=== PATIENT | male | born 1960 | race Caucasian/White ===

== ENCOUNTER → 2016-12-18 | Outpatient (CLI) | payer OTHER ==
[~2016-12-18] MED LIST: OXYC1TAB3 PO
[2016-12-18 14:04] LABS: BASO % 0.4 %; BASO ABS # 0.03 K/uL (0-0.2); COMPLETE YES; EOS % 0.9 %; HEMATOCRIT 46.9 % (42-52); IG% 0.1 %; LYMPH % 25.7 %; LYMPH ABS # 1.98 K/uL (1.2-3.4); MEAN CELL VOLUME 91.8 fL (80-100); MEAN CORPUSCULAR HEMOGLOBIN 30.3 pg (25-34); MEAN PLATELET VOLUME 12.4 fL (7.4-10.4); MONO % 6.4 %; NEUT % 66.5 %; PLATELET COUNT 213 K/uL (130-400); RED BLOOD COUNT 5.11 M/uL (4.7-6.1); WHITE BLOOD COUNT 7.69 K/uL (4.8-10.8)
[2016-12-18 14:29] LABS: ALT/SGPT 38 U/L (12-78); AST/SGOT 26 U/L (15-37); BLOOD UREA NITROGEN 17 mg/dl (7-18); BUN/CREATININE RATIO 16.9 (10-20); CALCIUM 8.8 mg/dl (8.5-10.1); CARBON DIOXIDE 29 mmol/L (21-32); CHLORIDE 106 mmol/L (98-107); CHOLESTEROL 179 mg/dl (0-200); GLUCOSE 104 mg/dl (70-99); POTASSIUM 3.8 mmol/L (3.5-5.1); SODIUM 139 mmol/L (136-145); TRIGLYCERIDES 206 mg/dl (0-150); VERY LOW DENSITY LIPOPROT CALC 41 mg/dl
[2016-12-18 14:31] LABS: ALB/GLOB RATIO 1.3 (0.9-2); ALKALINE PHOSPHATASE 106 U/L (45-117); HDL CHOLESTEROL 36 mg/dl; LDL CHOLESTEROL CALCULATED 102 mg/dl
== END | disposition home or self-care (01) ==
LOC: C.LABPVFM 09:25
PROVIDERS: ATTEND Neuromusculoskeletal Medicine & OMM
DX: Z00.00 Encounter for general adult medical examination without abnormal findings (principal); R03.0 Elevated blood-pressure reading, without diagnosis of hypertension

== ENCOUNTER 2024-08-04 10:35 | Observation (INO) ==
--- NOTE | 2024-08-04 10:50 | Emergency Department Note ---
Impression & Plan Acute CVA (cerebrovascular accident), Hypertension, Hypokalemia ED Provider Note NAME: MIKE RIOJAS AGE: 63 SEX: M : 1960 ARRIVES VIA: Walk-In INFORMANT: Patient ED PROVIDER(S): Lionel Salvador DO CHIEF COMPLAINT: Right arm weakness, blurry vision HPI: Patient is a 63-year-old male who presents to the ER with a past medical history of anxiety and hypertension for right arm weakness. He notes symptoms started initially about 3 days ago. He has been little bit more forgetful. He does feel foggy and does have some blurry vision. He notes he can no longer write his name is the fine motor is difficult with the right hand and arm. He also notices issue with overall gross weakness in the right arm. Denies any chest pain or shortness of breath. No belly pain. No nausea vomiting or diarrhea. No dysuria, urgency, or frequency. No other exacerbating or remitting factors. ADDITIONAL HISTORY OBTAINED: Per HPI Chronic Medical/Social Conditions Affecting Care: Per HPI PAST MEDICAL HISTORY:See Below PAST SURGICAL HISTORY:See Below FAMILY HISTORY:See Below SOCIAL HISTORY:See Below HOME MEDICATIONS:See Below ALLERGIES:See Below VITALS:See Below PHYSICAL EXAMINATION: GENERAL: Sitting up in bed, alert, well appearing, well nourished, no distress, non-toxic EYE EXAM: normal conjunctiva. PERRL and EOM's grossly intact. OROPHARYNX: no exudate, no erythema, lips, buccal mucosa, and tongue normal and mucous membranes are moist NECK: supple, no nuchal rigidity, no adenopathy, non-tender LUNGS: Clear to auscultation. Normal chest wall mechanics HEART: no murmurs, S1 normal and S2 normal ABDOMEN: abdomen soft, non-tender, normo-active bowel sounds, no masses, no rebound or guarding. BACK: Back is symmetrical on inspection and there is no deformity, no midline tenderness, no CVA tenderness. SKIN: no rashes and no bruising UPPER EXTREMITIES: upper extremities are grossly normal. LOWER EXTREMITIES: No pitting edema. NEURO EXAM: Normal sensorium, cranial nerves II-XII intact, normal speech, right upper extremity is 4 out of 5 with grasp as well as flexion extension in comparison to the left which is a 5 out of 5, no weakness of legs. No drift. Finger to nose intact. Gross sensation intact. MEDICAL DECISION MAKING: Patient is a 63-year-old male who presents ER with a past medical history of hypertension and anxiety who presents to the ER for right upper extremity weakness and blurry vision which has been present for the past 3 days. He notes he can no longer write his name he is having trouble with fine movement of his right hand. IVs were established and blood work was obtained. Labs showed no significant leukocytosis or anemia. INR was unremarkable. BMP with mild hypokalemia 3.4. LFTs bilirubin and troponin was negative. Upon arrival stroke alert was not called as patient is not a candidate for intervention or TNK as this is about [address] of the head is consistent with a stroke per my pulmonary interpretation. I did consult the hospitalist for admission evaluation. I received a phone call just following the page to the hospitalist which showed a 9 mm dissection of the carotid on the right. Did notify Dr. Cannon in regards to this and he requested that we speak with [facility] stroke team. There is no thrombus and both lumens are patent. I did discuss the case with Dr. Streeter from [facility] neuro teleradiology. He notes that this does not need to be transferred as there is no acute intervention that will be performed. He can stay here. He will place a note. I updated Dr. Cannon in regards to this. Please see their note for further disposition and details. Consults/Care Managements Discussions: Per [facility] Triage Nursing notes reviewed. Limited review of prior medical records performed Vital Signs: reviewed and remarkable for no significant abnormalities Differential diagnosis: Differential Diagnosis includes but is not limited to ischemic Stroke, hemorrhagic stroke, bells palsy, mass, neoplasm, migraine headache, seizure, subarachnoid hemorrhage, TIA, and transient global amnesia. ER treatment provided: See below Diagnostics interpreted by me include EKG and cardiac monitoring as listed below: -Cardiac Monitoring: An order was placed for continuous cardiac monitoring. The monitor shows a rate of 70 with sinus rhythm. -ECG: none -Laboratory studies:Interpreted by me as stated above in [facility] and shown below. Imaging studies: Xrays: As interpreted by me:none CTs show: CT of the head per my preliminary interpretation showed a infarct CT of the head as well as angios of the head and neck as described above in [facility] Procedures:none Critical Care: None Past Med/Surg History Problem List (Updated 08/04/24 @ 13:41 by Lionel Salvador DO) Hypokalemia (Acute) Hypertension (Acute) Acute CVA (cerebrovascular accident) (Acute) Colon cancer screening Encounter for pre-operative examination Vitamin D deficiency Anxiety Leukocytosis Impaired fasting glucose HTN (hypertension) Gastroesophageal reflux disease Medical History Gastroesophageal reflux disease HTN (hypertension) Surgical History History of knee surgery [place] removed from rt knee History of shoulder surgery Lt shoulder S/P hernia repair at the age of 5 S/P wisdom tooth extraction Family History Mother COPD (chronic obstructive pulmonary disease) Hypertension Brother Hypertension Uncle Myocardial infarction Other No family history of adverse response to anesthesia Denies family history of Ovarian cancer Prostate cancer Breast cancer Colorectal cancer Social History (Updated 11/27/21 @ 14:02 by MARIO Guadalupe) Smoking Status: Current every day smoker Second Hand Exposure: No; Do You Dip or Chew Tobacco: No; Hx Alcohol Use: No Hx Substance Use: No Preferred Language: Maldivian Communication Ability: Effective Visual Impairment: No Limitations Hearing Ability: Normal 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 Beliefs That Will Affect Care: None marital status: Current Living Situation: Spouse current occupational status: employed Feels Safe at Home: Yes Childhood Exposure to Second-Hand Smoke: No Diet: regular Diet Comment: regular caffeine: Yes (Soda ) Dental Care, Regularly: No Physical Activity Frequency: Daily Seatbelt Use: always Sunscreen Use: Yes Assistive Devices: None Allergies Allergies Allergy/AdvReac Type Severity Reaction Status Date / Time No Known Allergies Allergy Verified 12/31/21 09:08 Home Meds Home Medications Medication Instructions Recorded Confirmed No Known Home Medications 08/04/24 08/04/24 Results & Data (ED) Vital Signs Vital Signs - 24 hr 08/04/24 10:36 08/04/24 10:36 08/04/24 11:07 Temperature 36.6 C Temperature Source Temporal Artery Scan Pulse Rate 71 Pulse Rate [Apical] 76 Pulse Rate from SpO2 Sensor Respiratory Rate 18 18 Respiratory Effort / Characteristics Respiratory Depth Blood Pressure 199/111 H Blood Pressure [Left Arm] 199/111 H Blood Pressure Mean 122 Blood Pressure Mean [Left Arm] 140 Pulse Oximetry 94 95 Oxygen Delivery Method Room Air Sepsis Recent Fever Within 48 Hours No Sepsis New/Unexplained Change in Mental Status N/A Sepsis Action Taken by Nursing No Action Required 08/04/24 11:07 08/04/24 11:07 08/04/24 11:09 Temperature Temperature Source Pulse Rate 72 Pulse Rate [Apical] Pulse Rate from SpO2 Sensor 72 Respiratory Rate 17 Respiratory Effort / Characteristics Respiratory Depth Blood Pressure 199/111 H 199/111 H Blood Pressure [Left Arm] Blood Pressure Mean 122 122 Blood Pressure Mean [Left Arm] Pulse Oximetry 96 Oxygen Delivery Method Sepsis Recent Fever Within 48 Hours Sepsis New/Unexplained Change in Mental Status Sepsis Action Taken by Nursing 08/04/24 11:15 08/04/24 11:25 08/04/24 11:26 Temperature Temperature Source Pulse Rate 77 Pulse Rate [Apical] 76 Pulse Rate from SpO2 Sensor 76 Respiratory Rate 18 18 Respiratory Effort / Characteristics Non-Labored Spontaneous Respiratory Depth Normal Blood Pressure 151/95 H Blood Pressure [Left Arm] 151/95 H Blood Pressure Mean 135 Blood Pressure Mean [Left Arm] 113 Pulse Oximetry 95 95 Oxygen Delivery Method Room Air Sepsis Recent Fever Within 48 Hours Sepsis New/Unexplained Change in Mental Status Sepsis Action Taken by Nursing 08/04/24 11:26 08/04/24 11:26 08/04/24 11:30 Temperature Temperature Source Pulse Rate 72 Pulse Rate [Apical] Pulse Rate from SpO2 Sensor 72 Respiratory Rate 24 Respiratory Effort / Characteristics Respiratory Depth Blood Pressure 151/95 H 151/95 H Blood Pressure [Left Arm] Blood Pressure Mean 135 135 Blood Pressure Mean [Left Arm] Pulse Oximetry 95 Oxygen Delivery Method Sepsis Recent Fever Within 48 Hours Sepsis New/Unexplained Change in Mental Status Sepsis Action Taken by Nursing 08/04/24 11:42 Temperature Temperature Source Pulse Rate 74 Pulse Rate [Apical] Pulse Rate from SpO2 Sensor 72 Respiratory Rate 17 Respiratory Effort / Characteristics Respiratory Depth Blood Pressure Blood Pressure [Left Arm] Blood Pressure Mean Blood Pressure Mean [Left Arm] Pulse Oximetry 96 Oxygen Delivery Method Sepsis Recent Fever Within 48 Hours Sepsis New/Unexplained Change in Mental Status Sepsis Action Taken by Nursing Laboratory Data 08/04/24 10:25 08/04/24 10:25 Lab Results 08/04/24 Range/Units 10:25 WBC 9.69 (4.8-10.8) K/ul RBC 5.30 (4.70-6.10) M/uL Hgb 16.2 (14.0-18.0) g/dl Hct 46.5 (42.0-52.0) % MCV 87.7 (80.0-100.0) fL MCH 30.6 (25.0-34.0) pg MCHC 34.8 (32.0-36.0) g/dL RDW Std Deviation 38.8 (36.4-46.3) fL RDW Coeff of Janet 12.2 (11.5-14.5) % Plt Count 223 (130-400) K/uL MPV 12.1 (9.4-12.4) fL Immature Gran % (Auto) 0.4 % Neut % (Auto) 71.9 % Lymph % (Auto) 18.6 % Coffey % (Auto) 7.9 % Eos % (Auto) 0.7 % Baso % (Auto) 0.5 % Neut # (Auto) 6.96 H (1.40-6.50) K/uL Lymph # (Auto) 1.80 (1.20-3.40) K/uL Coffey # (Auto) 0.77 H (0.11-0.59) K/uL Eos # (Auto) 0.07 (0.00-0.50) K/uL Baso # (Auto) 0.05 (0.00-0.20) K/uL Immature Gran # (Auto) 0.04 (0.01-0.20) K/uL ESR 6 (0-20) mm/hr PT 10.9 (9.0-12.0) Seconds INR 1.0 (0.9-1.1) APTT 25 (21-31) Seconds PTT Ratio 0.9 Sodium 141 (136-145) mmol/L Potassium 3.4 L (3.5-5.1) mmol/L Chloride 102 (98-107) mmol/L Carbon Dioxide 33 H (21-32) mmol/L Anion Gap 6 (3-11) BUN 16 (6-23) mg/dl Creatinine 1.19 (0.6-1.4) mg/dl Est Cr Clr Drug Dosing 71.5 ml/min eGFR 69.50 BUN/Creatinine Ratio 13.4 (10-20) Glucose 74 (70-99(Fasting)) mg/dl Calcium 9.2 (8.6-10.3) mg/dl Magnesium 2.2 (1.7-2.4) mg/dl Total Bilirubin 0.7 (0.2-1.0) mg/dl AST 21 (13-39) U/L ALT 26 (7-52) U/L Alkaline Phosphatase 76 (34-104) U/L Troponin I High Sens 8.9 (0-20) pg/ml C-Reactive Protein < 0.50 (0-0.5) mg/dl Total Protein 7.3 (6.0-8.3) gm/dl Albumin 4.6 (3.4-5.0) gm/dl Globulin 2.7 (2.5-4.0) gm/dl Albumin/Globulin Ratio 1.7 (0.9-2) Administered Medications Discontinued Medications Aspirin (Aspirin Chew 324 Mg) 324 mg PO NOW STA Stop: 08/04/24 12:02 Last Admin: 08/04/24 12:12 Dose: 324 mg Documented By: RYLEY Clopidogrel Bisulfate (Clopidogrel Bisulfate 300 Mg Tab) 300 mg PO NOW STA Stop: 08/04/24 12:09 Last Admin: 08/04/24 12:12 Dose: 300 mg Documented By: RYLEY Ioversol (Optiray 320 125ml) 117 ml IV ONCE ONE Stop: 08/04/24 11:03 Last Admin: 08/04/24 11:03 Dose: 117 ml Documented By: GERA Imaging Data Radiologist's Impression: Head CT 08/04/24 10:39 Clinical History: Possible stroke 2 days ago Technique: Axial computed tomography images were obtained of the brain from the vertex to the skull base without intravenous contrast. Findings: There is no sign of intracranial hemorrhage. There is a 1.6 cm low-attenuation area in the left blancas radiata that may represent a subacute infarct. No midline shift or other form of herniation is identified. There is no hydrocephalus. No obvious mass lesion is seen on this noncontrast examination. The visualized portions of the orbits and paranasal sinuses appear unremarkable. The mastoid air cells appear clear Impression: Apparent subacute infarct of the left blancas radiata These findings were discussed with Dr. Salvador at 11:25 AM on 08/04/2024 ACT 112: Positive. There are findings on this exam that require communication between the performing entity and the patient following Patient Test Result Information Act ([place] ACT 112) guidelines. Electronically signed by Bill Gillespie 08-04-2024 11:26 AM Head CTA 08/04/24 10:39 Clinical History: Possible stroke 2 days ago Technique: Axial computed tomography images were obtained of the brain after the administration of intravenous contrast according to the CT angiogram protocol Findings: No definite stenosis or aneurysm is seen of the anterior, middle, or posterior cerebral artery circulations. The visualized vertebral arteries and the basilar artery appear unremarkable Impression: Unremarkable CTA of the brain These findings were discussed with Dr. Salvador at 11:25 AM on 08/04/2024 Electronically signed by Bill Gillespie 08-04-2024 11:26 AM Neck CTA 08/04/24 10:39 Clinical History: Possible stroke 2 days ago Technique: Axial computed tomography images were obtained of the neck after the administration of intravenous contrast according to the CT angiogram protocol Findings: No stenosis is seen in the common carotid arteries bilaterally. There is plaque within the carotid bulbs bilaterally, without significant stenosis. There is an apparent focal dissection within the right carotid bulb extending less than 1 cm in length. Flow is seen within both lumens. The remainder of the internal carotid arteries appear patent bilaterally. There is mild plaque at the origin of the right external carotid artery, without stenosis The vertebral arteries are patent bilaterally with no significant stenosis seen. The visualized thoracic aorta appears unremarkable There is multilevel degenerative disc disease and osteoarthritis of the cervical spine. Impression: 1. Focal dissection in the right carotid bulb 2. Mild plaque in the carotid bulbs bilaterally, without stenosis These findings were discussed with Dr. Salvador at 11:32 AM on 08/04/2024 ACT 112: Positive. There are findings on this exam that require communication between the performing entity and the patient following Patient Test Result Information Act ([place] ACT 112) guidelines. Electronically signed by Bill Gillespie 08-04-2024 11:32 AM Discharge Plan Visit Data Chief Complaint: TIA Symptoms Stated Complaint: FOGGY, CONFUSION, BLURRY VIS, RT ARM TINGLING ED Provider: Lionel Salvador Discharge Problem: Acute CVA (cerebrovascular accident), Hypertension, Hypokalemia Patient Disposition: Admitted As Inpatient Discharge Instructions Interventions: ED Discharge Assessment Last Done: 08/04/24 12:42 Discharge Problem: Hypertension Qualifiers: Hypertension type: unspecified Qualified Code(s): I10 - Essential (primary) hypertension
[2024-08-04] MEDS: OPTIRAY 320 125ml IV ONE (11:03)
[2024-08-04 11:14] LABS: Basophils # (auto) 0.05 K/uL (0.00-0.20); Basophils % (auto) 0.5 %; Eosinophils # (auto) 0.07 K/uL (0.00-0.50); Eosinophils % (auto) 0.7 %; Hematocrit (blood only) 46.5 % (42.0-52.0); Hemoglobin 16.2 g/dl (14.0-18.0); Immature Granulocytes # (auto) 0.04 K/uL (0.01-0.20); Immature Granulocytes % (auto) 0.4 %; Lymphocytes % (auto) 18.6 %; Mean Corpuscular Hemoglobin 30.6 pg (25.0-34.0); Mean Corpuscular Hgb Conc 34.8 g/dL (32.0-36.0); Mean Corpuscular Volume 87.7 fL (80.0-100.0); Mean Platelet Volume 12.1 fL (9.4-12.4); Monocytes # (auto) 0.77 K/uL (0.11-0.59); Monocytes % (auto) 7.9 %; Neutrophils # (auto) 6.96 K/uL (1.40-6.50); Neutrophils % (auto) 71.9 %; Platelet Count 223 K/uL (130-400); RDW Coefficient of Variation 12.2 % (11.5-14.5); RDW Standard Deviation 38.8 fL (36.4-46.3); White Blood Count 9.69 K/ul (4.8-10.8)
--- NOTE | 2024-08-04 11:26 | CT Scan Report ---
Clinical History: Possible stroke 2 days ago Technique: Axial computed tomography images were obtained of the brain from the vertex to the skull base without intravenous contrast. Findings: There is no sign of intracranial hemorrhage. There is a 1.6 cm low-attenuation area in the left blancas radiata that may represent a subacute infarct. No midline shift or other form of herniation is identified. There is no hydrocephalus. No obvious mass lesion is seen on this noncontrast examination. The visualized portions of the orbits and paranasal sinuses appear unremarkable. The mastoid air cells appear clear Impression: Apparent subacute infarct of the left blancas radiata These findings were discussed with Dr. Salvador at 11:25 AM on 08/04/2024 ACT 112: Positive. There are findings on this exam that require communication between the performing entity and the patient following Patient Test Result Information Act ([place] ACT 112) guidelines. Electronically signed by Bill Gillespie 08-04-2024 11:26 AM
--- NOTE | 2024-08-04 11:27 | CT Scan Report ---
Clinical History: Possible stroke 2 days ago Technique: Axial computed tomography images were obtained of the brain after the administration of intravenous contrast according to the CT angiogram protocol Findings: No definite stenosis or aneurysm is seen of the anterior, middle, or posterior cerebral artery circulations. The visualized vertebral arteries and the basilar artery appear unremarkable Impression: Unremarkable CTA of the brain These findings were discussed with Dr. Salvador at 11:25 AM on 08/04/2024 Electronically signed by Bill Gillespie 08-04-2024 11:26 AM
[2024-08-04 11:31] LABS: Alanine Aminotransferase 26 U/L (7-52); Albumin Globulin Ratio 1.7 (0.9-2); Albumin Level 4.6 gm/dl (3.4-5.0); Alkaline Phosphatase 76 U/L (34-104); Anion Gap 6 (3-11); Aspartate Aminotransferase 21 U/L (13-39); BUN Creatinine Ratio 13.4 (10-20); Bilirubin,Total 0.7 mg/dl (0.2-1.0); Blood Urea Nitrogen 16 mg/dl (6-23); Calcium 9.2 mg/dl (8.6-10.3); Carbon Dioxide 33 mmol/L (21-32); Chloride 102 mmol/L (98-107); Creatinine Clr Calc Pharmacy 71.5 ml/min; Globulin 2.7 gm/dl (2.5-4.0); Glucose 74 mg/dl (70-99(Fasting)); Magnesium 2.2 mg/dl (1.7-2.4); Potassium 3.4 mmol/L (3.5-5.1); Sodium 141 mmol/L (136-145); Total Protein 7.3 gm/dl (6.0-8.3)
--- NOTE | 2024-08-04 11:32 | CT Scan Report ---
Clinical History: Possible stroke 2 days ago Technique: Axial computed tomography images were obtained of the neck after the administration of intravenous contrast according to the CT angiogram protocol Findings: No stenosis is seen in the common carotid arteries bilaterally. There is plaque within the carotid bulbs bilaterally, without significant stenosis. There is an apparent focal dissection within the right carotid bulb extending less than 1 cm in length. Flow is seen within both lumens. The remainder of the internal carotid arteries appear patent bilaterally. There is mild plaque at the origin of the right external carotid artery, without stenosis The vertebral arteries are patent bilaterally with no significant stenosis seen. The visualized thoracic aorta appears unremarkable There is multilevel degenerative disc disease and osteoarthritis of the cervical spine. Impression: 1. Focal dissection in the right carotid bulb 2. Mild plaque in the carotid bulbs bilaterally, without stenosis These findings were discussed with Dr. Salvador at 11:32 AM on 08/04/2024 ACT 112: Positive. There are findings on this exam that require communication between the performing entity and the patient following Patient Test Result Information Act ([place] ACT 112) guidelines. Electronically signed by Bill Gillespie 08-04-2024 11:32 AM
[2024-08-04 11:37] LABS: Troponin I High Sensitivity 8.9 pg/ml (0-20)
[2024-08-04 11:41] LABS: Partial Thromboplastin Ratio 0.9; Partial Thromboplastin Time 25 Seconds (21-31); Prothrombin Time 10.9 Seconds (9.0-12.0)
[2024-08-04] MEDS ORDERED: ALUMINUM/MAGNESIUM SUSP 30 ML UDC PO PRN (11:53)
[2024-08-04] MEDS ORDERED: MAGNESIUM HYDROXIDE SUSP 30 ML UDC PO PRN (11:53)
[2024-08-04] MEDS ORDERED: ACETAMINOPHEN 325 MG TAB PO PRN (11:53)
[2024-08-04] MEDS ORDERED: ONDANSETRON INJ 2 MG/ML 2 ML VIAL IV PRN (11:53)
[2024-08-04] MEDS ORDERED: POLYETHYLENE (MIRALAX) 17 GM PACK PO PRN (11:53)
[2024-08-04] MEDS ORDERED: MELATONIN 3 MG TAB PO PRN (11:59)
[2024-08-04] MEDS ORDERED: PHARMACIST DISCHARGE MED REC CONSULT PRN ×2 (12:09→12:23)
[2024-08-04] MEDS: ASPIRIN CHEW 324 MG PO STA (12:12)
[2024-08-04] MEDS: CLOPIDOGREL BISULFATE 300 MG TAB PO STA (12:12)
--- NOTE | 2024-08-04 12:18 | History & Physical Report ---
Date of Service August 04, 2024 Assessment & Plan (1) Acute CVA (cerebrovascular accident): Plan: Assessment: 1. Acute CVA left blancas radiata. Signs and symptoms ongoing for 3 days. Stat dual antiplatelet therapy. 324 of aspirin. 300 of Plavix. Starting tomorrow 81 of aspirin. 75 of Plavix. High-dose statin therapy has been implemented statin 80 mg of Lipitor. Neurology consulted. MRI of the brain's been ordered. Echocardiograms been ordered. Stroke order set has been implemented. 2. History of hypertension. At this point we will allow for permissive hypertension given the acute to subacute CVA. 3. Unknown lipid status. Lipid panel in the a.m. 4. Obesity. 5. Mild hypokalemia. Replace orally and recheck in the a.m. will do potassium chloride 40 mill equivalents x 1 Plan: As discussed above. Please refer to orders for further planning. History of Present Illness Chief Complaint: Right arm discoordination, unable to write with his dominant right hand and slight confusion Primary Care Provider: Harry Miller, This is a pleasant 63-year-old male who 72 hours ago developed discoordination of his right hand which is his dominant hand is unable to write. He has had some right arm weakness and some discoordination as well as confusion. Today he presented to the ER for further evaluation and treatment. The patient was stroke alerted. He had a CT of the brain which is positive for a subacute left blancas radiata infarct. In addition CTA of the head and neck were positive for a small right carotid bulb artery dissection. Telestroke was contacted by the ER provider per the ER provider no surgical recommendation was recommended. We made contact with local neurology on-call we are starting stat dual antiplatelet therapy and high-dose statin therapy will do an MRI of the brain admit the patient under the stroke protocol. Echocardiogram. The patient's laboratory studies were otherwise unremarkable. Allergies Allergy/AdvReac Type Severity Reaction Status Date / Time No Known Allergies Allergy Verified 12/31/21 09:08 Home Medications Medication Instructions Recorded Confirmed Type No Known Home Medications 08/04/24 08/04/24 History Past Med/Surg History Problem List (Updated 08/04/24 @ 12:16 by Joe aCnnon, PhD, DO) Acute CVA (cerebrovascular accident) Colon cancer screening Encounter for pre-operative examination Vitamin D deficiency Anxiety Leukocytosis Impaired fasting glucose HTN (hypertension) Gastroesophageal reflux disease Medical History Gastroesophageal reflux disease HTN (hypertension) Surgical History History of knee surgery Cartlidge removed from rt knee History of shoulder surgery Lt shoulder S/P hernia repair at the age of 5 S/P wisdom tooth extraction Family History Mother COPD (chronic obstructive pulmonary disease) Hypertension Brother Hypertension Uncle Myocardial infarction Other No family history of adverse response to anesthesia Denies family history of Ovarian cancer Prostate cancer Breast cancer Colorectal cancer Social History (Updated 11/27/21 @ 14:02 by MARIO Guadalupe) Smoking Status: Current every day smoker Second Hand Exposure: No; Do You Dip or Chew Tobacco: No; Hx Alcohol Use: No Hx Substance Use: No Preferred Language: Turkmen Communication Ability: Effective Visual Impairment: No Limitations Hearing Ability: Normal Librarian Head Required: No Beliefs That Will Affect Care: None marital status: Current Living Situation: Spouse current occupational status: employed Feels Safe at Home: Yes Childhood Exposure to Second-Hand Smoke: No Diet: regular Diet Comment: regular caffeine: Yes (Soda ) Dental Care, Regularly: No Physical Activity Frequency: Daily Seatbelt Use: always Sunscreen Use: Yes Assistive Devices: None Review of Systems Review of Systems: A 10 point review of system was obtained and unless otherwise stated here or in history of present illness are negative and noncontributory to chief complaint. Physical Exam Physical Exam: In General: In general very pleasant 63-year-old male he is alert and oriented x 3. He denies any pain. His only symptomatology is a discoordination of his right hand and difficulty focusing for an extended period of time. 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 HEENT: Normocephalic atraumatic pupils are equal round and reactive to light bilaterally. No scleral icterus no conjunctival injection external auditory canals are patent septum is in the midline nose is without discharge oral mucosa is pink and moist without lesion. NECK: Supple no rigidity no lymphadenopathy no thyromegaly no carotid bruits no JVD no masses. HEART: Regular rate and rhythm I do not appreciate any ectopy or rub. No murmur. LUNGS: Clear to auscultation bilaterally and anteriorly with no evidence of a dventitious sounds/wheezes rales or rhonchi. ABDOMEN: Soft nontender, no rebound, no peritoneal signs, positive bowel sounds, no appreciable organomegaly. EXTREMITIES: Intact, no peripheral cyanosis, clubbing or edema. Strength is 5 out of 5 in his extremities x 3. The exception is his right upper extremity. He has 4+ out of 5 strength. It is minimally decreased to the contralateral upper extremity and his right upper extremity is his dominant hand so therefore he does have decreased strength. no pathological reflexes. No pronator drift. The patient does have discoordination of his right upper extremity with fine movements compared to his left. NEUROLOGICAL: Other than described above, cranial nerves II through XII are grossly intact with no focal deficit elicited upon examination. No tremor. Results & Data Results & Data Vital Signs (Past 12 Hours) Vital Signs Temp Pulse Pulse Resp BP Pulse Ox O2 Del Method 08/04/24 11:25 76 18 151/95 H 95 Room Air 08/04/24 10:36 76 18 199/111 H 95 Room Air 08/04/24 10:36 36.6 C 71 18 94 Code Status & VTE Plan Code Status Full code. I personally discussed with patient the bedside. In addition if the patient is unable to make medical decisions for himself he asked us to consult with his daughter Ramses REDDY Care Time/CCT Total # of Minutes Spent Total Time Spent with Patient: Total time spent is greater than 50% in coordination of care (as documented) at patient's floor/unit and/or counseling patient: Coding Level of Care Code 67749 INT INP/OBS CARE 375MIN Diagnoses Acute CVA (cerebrovascular accident) I63.9
[2024-08-04 12:20] LABS: C Reactive Protein < 0.50 mg/dl (0-0.5)
--- NOTE | 2024-08-04 13:27 | Magnetic Resonance Report ---
Technique: Multiple T1 and T2-weighted magnetic resonance images were obtained of the brain without gadolinium contrast Comparison is made to the head CT obtained earlier today Findings: There is a 1.8 x 1.6 x 1.2 cm area of restricted diffusion and increased T2 signal intensity in the left blancas radiata, corresponding to the low attenuation area seen on CT. This is consistent with a subacute infarct. No other area of infarction is seen. No definite mass lesion is seen on this noncontrast study. There is no intracranial hemorrhage or other fluid collection. No midline shift or other form of herniation is seen. There is no hydrocephalus. Normal flow-voids are seen within the arteries of the [id number]. The orbits and paranasal sinuses appear normal. The mastoid air cells appear clear. Impression: Unchanged subacute infarct of the left blancas radiata ACT 112: Positive. There are findings on this exam that require communication between the performing entity and the patient following Patient Test Result Information Act ([place] ACT 112) guidelines. Electronically signed by Bill Gillespie 08-04-2024 13:25 PM
[2024-08-04] MEDS: ATORVASTATIN 40 MG TAB PO SCH (14:27)
[2024-08-04] MEDS: POTASSIUM CHLORIDE CRTAB 20 MEQ TABCR PO STA (14:42)
[2024-08-05 06:50] LABS: Basophils # (auto) 0.05 K/uL (0.00-0.20); Basophils % (auto) 0.6 %; Eosinophils # (auto) 0.13 K/uL (0.00-0.50); Eosinophils % (auto) 1.6 %; Hematocrit (blood only) 44.4 % (42.0-52.0); Hemoglobin 15.4 g/dl (14.0-18.0); Immature Granulocytes # (auto) 0.03 K/uL (0.01-0.20); Immature Granulocytes % (auto) 0.4 %; Lymphocytes # (auto) 2.19 K/uL (1.20-3.40); Lymphocytes % (auto) 26.7 %; Mean Corpuscular Hemoglobin 30.4 pg (25.0-34.0); Mean Corpuscular Hgb Conc 34.7 g/dL (32.0-36.0); Mean Corpuscular Volume 87.7 fL (80.0-100.0); Mean Platelet Volume 11.8 fL (9.4-12.4); Monocytes % (auto) 7.3 %; Neutrophils # (auto) 5.21 K/uL (1.40-6.50); Neutrophils % (auto) 63.4 %; Platelet Count 214 K/uL (130-400); RDW Coefficient of Variation 12.1 % (11.5-14.5); RDW Standard Deviation 38.5 fL (36.4-46.3); Red Blood Count 5.06 M/uL (4.70-6.10); White Blood Count 8.21 K/ul (4.8-10.8)
[2024-08-05 07:13] LABS: Albumin Globulin Ratio 1.7 (0.9-2); Albumin Level 4.2 gm/dl (3.4-5.0); BUN Creatinine Ratio 15.3 (10-20); Bilirubin,Total 0.9 mg/dl (0.2-1.0); Calcium 8.6 mg/dl (8.6-10.3); Chol HDL Ratio 5.1 (0-5); Creatinine Clr Calc Pharmacy 99.9 ml/min; Globulin 2.5 gm/dl (2.5-4.0); Potassium 3.6 mmol/L (3.5-5.1); Total Protein 6.7 gm/dl (6.0-8.3)
[2024-08-05 07:26] LABS: Thyroid Stimulating Hormone 2.757 uIu/ml (0.300-4.500)
[2024-08-05 08:20] LABS: Estimated Average Glucose 114 mg/dl; Hemoglobin A1C 5.6 % (4.5-5.6)
[2024-08-05] MEDS: ASPIRIN 81 MG ECTAB PO SCH (08:35)
[2024-08-05] MEDS: CLOPIDOGREL BISULFATE 75 MG TAB PO SCH (08:36)
--- NOTE | 2024-08-05 08:47 | Hospitalist Progress Note ---
Date of Service August 05, 2024 Assessment & Plan (1) Acute CVA (cerebrovascular accident): Plan: Assessment: Acute CVA 3 days of symptoms, was not a thrombolytic candidate at time of assessment DAPT continued. Atorvastatin 80 mg continued Neurology consulted MRI: Subacute infarct of the left blancas radiata Echo pending - CTAhead: No acute findings - CTAneck: Acute dissection of the right carotid bulb - CThead: Subacute infarct of left blancas radiata Carotid bulb dissection Acute dissection of the right carotid bulb contralateral to patient's subacute infarct was seen. This was discussed with teleneurology by ER prior to admission. No surgical intervention was recommended, patient was subsequently recommended for DAPT therapy and monitor Not have any evidence of ipsilateral ischemic disease Will likely continue on DAPT however will discuss? Anticoagulation versus antiplatelet therapy with neurology Hypertension Admitted to allow for permissive hypertension 220/110 She is now more than 24 hours out from onset of symptoms, will add antihypertensives to reduce blood pressure No history of DM2, A1c is normal. No history of cardiac comorbidities. Does have history of borderline hypokalemia. HCTZ deferred. Will add lo sartan for BP control DVT prophylaxis: Chemical prophylaxis deferred on mission for acute stroke evaluation. SCDs Disposition Admission and Anticipated Discharge Date Admission Date: August 04, 2024 Results & Data Results & Data Vital Signs (Past 12 Hours) Vital Signs Temp Pulse Pulse Resp BP Pulse Ox O2 Del Method 08/05/24 07:58 36.7 C 76 21 186/115 H 98 Room Air 08/05/24 02:44 36.7 C 78 16 173/111 H 95 Room Air 08/05/24 01:11 63 08/04/24 22:26 36.8 C 74 18 188/100 H 96 Room Air PG Care Time/CCT Total # of Minutes Spent Total Time Spent with Patient: Total time spent is greater than 50% in coordination of care (as documented) at patient's floor/unit and/or counseling patient: Coding Diagnoses Acute CVA (cerebrovascular accident) I63.9
--- NOTE | 2024-08-05 09:44 | Neurology Consultation ---
Date of Consultation August 05, 2024 Assessment & Plan (1) Acute CVA (cerebrovascular accident): (2) Dissection of right carotid artery: Plan 63-year-old male presenting with right sided weakness, face and arm, associated mild speech difficulty, beginning a few days ago, related to a subacute left blancas radiata ischemic infarct. He does have a longstanding history of hypertension and decided to stop his medications about 2 years ago after the of his spouse due to metastatic breast cancer. CT angiography of the head and neck reveals a focal right carotid dissection within the carotid bulb. This finding would not be related to his left blancas radiata ischemic infarct. He does have bilateral atherosclerotic plaque within the carotid bulbs, nothing that would require surgical treatment, however. I agree with aspirin and Plavix as ordered. Would continue with dual antiplatelet therapy, aspirin 81 mg/day and Plavix 75 mg/day for 4 weeks. Afterwards, would discontinue Plavix in favor of aspirin 81 mg/day monotherapy. Agree with atorvastatin as ordered, goal LDL 70 or less. Agree with losartan to address hypertension. He will need to reestablish with a primary care physician after discharge for ongoing monitoring of cardiovascular risk factors. He is a non-smoker. As an outpatient, would plan for a follow-up CTA or MRA (with and without gadolinium) of the neck. Because this finding is likely asymptomatic, this follow-up imaging can be completed in 3 months. Would recommend a transthoracic echocardiogram with bubble study. Consider 30-day mobile cardiac outpatient telemetry as well. The patient may follow-up with myself or an BERNARDO in neurology clinic in 2 to 3 weeks after discharge. Again, he needs to establish with a PCP as well. History of Present Illness Reason for Consultation: Stroke Requesting Physician: John Attending Physician: Devan Mace MD History of Present Illness The patient is a 63-year-old male with a chief complaint of mild right sided weakness that began 3 days prior to presentation in the emergency department. He noted difficulty using his right hand, hand writing, also complains of some mild associated numbness, no significant weakness or numbness of the lower limb. He also indicates that he had some mild difficulty with speech, and perhaps some intermittent blurry vision, no vision loss. He feels that his symptoms are currently nearly resolved. No headache. An initial CT of the head was negative for hemorrhage but did reveal a possible subacute infarct in the left blancas radiata. A CTA of the head and neck revealed a focal dissection within the right carotid bulb and mild plaque within the carotid bulbs bilaterally. He denies any neck pain or recent injury to the head or neck. A brain MRI revealed a subacute infarct within the left blancas radiata. I independently reviewed these images. An electrocardiogram reveals a normal sinus rhythm. He does report a history of hypertension but stopped taking all of his medications about 2 years ago after his spouse due to metastatic breast cancer. He does not follow with a primary care physician regularly. Allergies Allergy/AdvReac Type Severity Reaction Status Date / Time No Known Allergies Allergy Verified 12/31/21 09:08 Home Medications Medication Instructions Recorded Confirmed Type No Known Home Medications 08/04/24 08/04/24 History Patient History Medical History Gastroesophageal reflux disease HTN (hypertension) Surgical History History of knee surgery Cartlidge removed from rt knee History of shoulder surgery Lt shoulder S/P hernia repair at the age of 5 S/P wisdom tooth extraction Family History Mother COPD (chronic obstructive pulmonary disease) Hypertension Brother Hypertension Uncle Myocardial infarction Other No family history of adverse response to anesthesia Denies family history of Ovarian cancer Prostate cancer Breast cancer Colorectal cancer Social History (Updated 11/27/21 @ 14:02 by MARIO Guadalupe) Smoking Status: Never smoker Second Hand Exposure: No; Do You Dip or Chew Tobacco: No; Hx Alcohol Use: No Hx Substance Use: No Preferred Language: Welsh Communication Ability: Effective Visual Impairment: No Limitations Hearing Ability: Normal Line Out Man Required: No Beliefs That Will Affect Care: None marital status: Current Living Situation: Alone current occupational status: employed Feels Safe at Home: Yes Childhood Exposure to Second-Hand Smoke: No Diet: regular Diet Comment: regular caffeine: Yes (Soda ) Dental Care, Regularly: No Physical Activity Frequency: Daily Seatbelt Use: always Sunscreen Use: Yes Assistive Devices: None Review of Systems Constitutional: no fever Eyes: no blind spots and no diplopia Ear, Nose, Mouth, Throat: no hearing loss Respiratory: no cough and no dyspnea Cardiovascular: no chest pain and no palpitations Gastrointestinal: no nausea and no vomiting Genitourinary: no dysuria Musculoskeletal: no neck pain and no myalgia Integumentary: no rash and no lesions Neurologic: as per Subjective / HPI Psychiatric: no depression and no anxiety Hematologic / Lymphatic: no easy bleeding and no easy bruising Exam (Neuro) Constitutional: well developed and well nourished; no acute distress Eyes: normal visual simons by confrontation, PERRL, normal accommodation and EOM intact bilaterally; no nystagmus Neurologic: Oriented to:: Person, Place and Time Memory: Short Term Intact and Remote Intact Attention: Span Intact and Concentration Intact Language: Naming Objects and Repeating Phrases Speech Fluency: negative Dysarthria Speech Aphasia: negative Aphasia Fund of Knowledge: Current Events, Past History and Vocabulary Cranial Nerves: Normal II (Visual simons full to confrontation, visual acuity normal), III, IV, (Pupils equal round reactive to light and accommodation, eye movements normal), V (Facial sensation intact), VIII (Hearing intact), IX, X (Palate elevates to midline), XI (Shoulder shrug intact) and XII (Tongue protrudes to midline); Abnorm VII (There is mild flattening of the right nasolabial fold) Motor Strength: Normal Lower Extremities and Normal Upper Extremities; negative Pronator Drift Motor Tone: Normal Lower Extremities and Normal Upper Extremities Muscle Bulk/Involuntary Movements: No Involuntary Movements; negative Muscle Atrophy Sensation: Light Touch Intact, Pain/Temperature Intact, Vibration Intact and Proprioception Intact Coordination: Normal; negative Limited Balance, Dysdiadochokinesia, Finger-Nose Abnormal or Heel-Tellez Abnormal Deep Tendon Reflexes: Rt Triceps: 2+, Lt Triceps: 2+, Rt Biceps: 2+, Lt Biceps: 2+, Rt Brachioradialis: 2+, Lt Brachioradialis: 2+, Rt Patellar: 2+, Lt Patellar: 2+, Rt Ankle: 2+ and Lt Ankle: 2+ Special Tests: negative Babinski Present Gait: Normal Station and Gait Results & Data Vital Signs (Past 12 Hours) Vital Signs Temp Pulse Pulse Resp BP Pulse Ox O2 Del Method 08/05/24 07:58 36.7 C 76 21 186/115 H 98 Room Air 08/05/24 02:44 36.7 C 78 16 173/111 H 95 Room Air 08/05/24 01:11 63 08/04/24 22:26 36.8 C 74 18 188/100 H 96 Room Air Laboratory Results WBC 8.21, hemoglobin 15.4, hematocrit 44.4, platelet count 214, sodium 140, potassium 3.6, BUN 15, creatinine 0.98, glucose 111, hemoglobin A1c 5.6, calcium 8.6, magnesium 2.0, AST 21, ALT 25, triglycerides 170, cholesterol 183, LDL 113, HDL 36, TSH 2.757 Coding Level of Care Code 46543 INT INP/OBS CARE 75MIN Diagnoses Acute CVA (cerebrovascular accident) I63.9 Dissection of right carotid artery I77.71 Time Spent (min) 75 Comment Total time includes patient contact, chart review, counseling, note preparation
[2024-08-05 10:55] VITALS: RESP 20; TEMP 97.5; O2SAT 94
[2024-08-05] MEDS: LOSARTAN POTASSIUM 25 MG TAB PO SCH (11:19)
--- NOTE | 2024-08-05 12:33 | Discharge Summary ---
Discharge Summary Date of Service August 05, 2024 Principal Dx & Hospital Course #1 = Principal Diagnosis (1) Acute CVA (cerebrovascular accident): Mariano was seen for admission for right hand weakness, discoordination, and confusion. He was found to have a left blancas radiata stroke on MRI. He was also found to have a right carotid bulb dissection which did not correlate with his stroke symptoms. Symptoms completely resolved following blood pressure control and antiplatelet treatment. He was not a TNKase candidate due to duration of symptoms approximately 3 days prior to presentation Patient had previously treated hypertension however has not taken any antihypertensives in at least several months He was allowed for permissive hypertension and then started on losartan with improvement of blood pressure. Will need further blood pressure monitoring until within optimal goal range CVA Continue DAPT therapy with aspirin and Plavix for 1 month, then switch to aspirin alone No residual deficits at time of discharge. Symmetrical strength and sensation. He felt his coordination was back to normal Continue atorvastatin 80 mg daily Follow-up to neurology and PCP Echo was pending at time of discharge, this was completed but not read. Risk of PFO was discussed patient did not wish to wait remain in the hospital any further to find the results of this, and is aware that if a PFO is present may be a anticoagulation rather than antiplatelet candidate. He will follow-up on this with neurology as an outpatient. Blood pressure was improving but not optimally controlled on discharge. He was continued on losartan 50 mg and follow-up with PCP within 1 week for blood pressure recheck and adjustment of medications as needed. Right carotid bulb dissection Antiplatelet therapy as noted Repeat CTA or MRI with and without contrast in approximately 3 months for reevaluation Admission HPI Per Admitting Provider This is a pleasant 63-year-old male who 72 hours ago developed discoordination of his right hand which is his dominant hand is unable to write. He has had some right arm weakness and some discoordination as well as confusion. Today he presented to the ER for further evaluation and treatment. The patient was stroke alerted. He had a CT of the brain which is positive for a subacute left blancas radiata infarct. In addition CTA of the head and neck were positive for a small right carotid bulb artery dissection. Telestroke was contacted by the ER provider per the ER provider no surgical recommendation was recommended. We made contact with local neurology on-call we are starting stat dual antiplatelet therapy and high-dose statin therapy will do an MRI of the brain admit the patient under the stroke protocol. Echocardiogram. The patient's laboratory studies were otherwise unremarkable. Discharge Exam General: A&Ox3. NAD. Cooperative. HEENT: Atraumatic, normocephalic. Pulm: CTAB A&P. -wheezes, -rales, -rhonchi. Symmetrical chest rise. No increased work of breathing. No respiratory distress. Cardiac: RRR, -mrg. Radial pulses intact and symmetrical. Abdominal: Nontender, nondistended, soft. BS present. CRANIAL NERVES: II: Pupils equal and reactive, no relative afferent pupillary defect, no VF cuts III, IV, : EOM intact, no gaze preference or deviation, no nystagmus. V: normal sensation in V1, V2, and V3 segments bilaterally VII: no asymmetry, no nasolabial fold flattening VIII: normal hearing to speech IX, X: normal palatal elevation, no uvular deviation XI: 5/5 head turn and 5/5 shoulder shrug bilaterally XII: midline tongue protrusion Extremities: [employer] strength, elbow flexion/extension, shoulder flexion, shoulder internal/external rotation, hip flexion, ankle dorsiflexion/plantarflexion 5/5 without deficit or asymmetry. Sensation soft touch intact in hands and feet Discharge Plan Discharge Items Patient Disposition: Home - Self-Care Reason For Visit: CVA, CAROTID DISSECTION Discharge Diagnosis: CVA Activity: Resume your previous activity Non-emergency contact: Primary Care Provider and Neurologist Call non-emergency contact if: you have any medication questions, your symptoms worsen and your pain is not controlled Follow-up/Referrals: Enrique Bowser MD [Physician] - Harry Miller DO [Primary Care Provider] - Diet: Heart Healthy Addtl Attending Provider Instructions: You were seen in the hospital for an acute stroke. Your MRI showed a left blancas radiata stroke correlating with your symptoms. You have been started on aspirin and Plavix. Please take aspirin 81 mg daily and Plavix 75 mg daily for 1 month. After 1 month you may stop taking Plavix, and continue to take aspirin 81 mg daily indefinitely. You have been started on a medicine to help lower both cholesterol and risk of recurrent stroke, atorvastatin. Please take atorvastatin 80 mg by mouth daily. You will need a blood work recheck/LFTs performed by your primary care provider within 1 month. You were noted to have a right carotid bulb dissection. This was on the opposite side of your stroke and was not thought to be the cause of your acute stroke. You have been recommended continue aspirin and Plavix as noted above. You should have a outpatient CTA or MRI with and without gadolinium in approximately 3 months for follow-up. A ultrasound of your heart called an echocardiogram was performed during admission. This was pending at time of discharge. Your blood pressure was improving with the addition of losartan 50 mg. Please follow-up with your PCP for a blood pressure recheck and adjustments of your medications as needed within 1 week. Please have your primary care provider review the final results of the echocardiogram when available. If this shows a congenital defect called with PFO it may be beneficial to switch you to a blood thinner with aspirin rather than aspirin and Plavix. If you develop any new or worsening symptoms including fever, chills, sweats, chest pain, chest pressure, difficulty breathing, uncontrolled nausea/vomiting, rash, wheezing, passing out or nearly passing out, bleeding, black/bloody bowel movements, or other new or concerning symptoms please call your primary care physician, or call 911 for re-evaluation in the emergency department if you are very concerned. Pending Studies at Discharge: No Stand-Alone Forms: [facility], Smoking Cessation, Medications to Prevent Stroke Medications and DC Order Prescriptions: New atorvastatin 40 mg Tablet 80 mg PO QAM Qty: 30 0RF clopidogrel 75 mg Tablet 75 mg PO QAM Qty: 30 0RF losartan 25 mg Tablet 50 mg PO DAILY Qty: 60 0RF aspirin 81 mg Tablet,Delayed Release (Dr/Ec) 81 mg PO DAILY Qty: 30 0RF Discharge Orders: Discharge Order (Routine); Ordered 08/05/24 Ordered By: Devan Mace Admission Data Admit Date/Time: 08/04/24 11:53 Attending Provider: Devan Mace Admit Provider: Joe Cannon Primary Care Provider: Harry Miller Other Providers: Joe Cannon; Enrique Bowser Other Interventions: Discharge Summary Assessment (RN) Last Done: 08/05/24 14:16 Hospital Stay Data Consultations 08/04/24 11:23 ED Decision to Admit Stat 08/04/24 11:59 Consult Neurology Routine Diagnostic Imagining Performed 08/04/24 10:39 CT angio head w con Stat CT angio neck with con Stat CT head/brain wo con Stat 08/04/24 12:09 MRI Brain [MR brain wo con] Stat Discharge Instructions Given to Patient (Per Discharging Provider) You were seen in the hospital for an acute stroke. Your MRI showed a left blancas radiata stroke correlating with your symptoms. You have been started on aspirin and Plavix. Please take aspirin 81 mg daily and Plavix 75 mg daily for 1 month. After 1 month you may stop taking Plavix, and continue to take aspirin 81 mg daily indefinitely. You have been started on a medicine to help lower both cholesterol and risk of recurrent stroke, atorvastatin. Please take atorvastatin 80 mg by mouth daily. You will need a blood work recheck/LFTs performed by your primary care provider within 1 month. You were noted to have a right carotid bulb dissection. This was on the opposite side of your stroke and was not thought to be the cause of your acute stroke. You have been recommended continue aspirin and Plavix as noted above. You should have a outpatient CTA or MRI with and without gadolinium in approximately 3 months for follow-up. A ultrasound of your heart called an echocardiogram was performed during admission. This was pending at time of discharge. Your blood pressure was improving with the addition of losartan 50 mg. Please follow-up with your PCP for a blood pressure recheck and adjustments of your medications as needed within 1 week. Please have your primary care provider review the final results of the echocardiogram when available. If this shows a congenital defect called with PFO it may be beneficial to switch you to a blood thinner with aspirin rather than aspirin and Plavix. If you develop any new or worsening symptoms including fever, chills, sweats, chest pain, chest pressure, difficulty breathing, uncontrolled nausea/vomiting, rash, wheezing, passing out or nearly passing out, bleeding, black/bloody bowel movements, or other new or concerning symptoms please call your primary care physician, or call 911 for re-evaluation in the emergency department if you are very concerned. Total Time Total Time Spent Total Time Spent (In Minutes): Time spend day of discharge 45 minutes including direct patient care, documentation, review of labs and images, and coordination of care. Coding Level of Care Code 11717 INP/OBS DISCH >30 MIN Diagnoses Acute CVA (cerebrovascular accident) I63.9
[2024-08-05] MEDS: STROKE PATIENT DISCHARGE STA (13:03)
[2024-08-05] MEDS: LOSARTAN POTASSIUM 25 MG TAB PO ONE (13:03)
--- NOTE | 2024-08-05 13:09 | Electrocardiogram Report ---
Test Reason : Blood Pressure : */* mmHG Vent. Rate : 72 BPM Atrial Rate : 72 BPM P-R Int : 170 ms QRS Dur : 94 ms QT Int : 420 ms P-R-T Axes : 64 33 47 degrees QTcB Int : 459 ms Normal sinus rhythm Possible Left atrial enlargement Cannot rule out Anterior infarct , age undetermined Abnormal ECG No previous ECGs available Confirmed by Heraclio Thomas ([id number]) on 08/05/2024 1:08:44 PM Referred By: Confirmed By: Heraclio Thomas
--- NOTE | 2024-08-05 13:31 | Pharmacy Report ---
- Date of Service August 05, 2024 - Pharmacy CVA/TIA Medication Review Medications to Prevent Stroke handout has been added to the patients discharge packet. Antiplatelet(s) * Aspirin + Plavix Cholesterol * High intensity statin: atorvastatin 80 mg daily DVT Prophylaxis * Pharmacologic and mechanical DVT prophylaxis deferred Therapeutic Anticoagulation * No history of Afib/Aflutter noted Type 2 Diabetes * Patient does not have T2DM
[2024-08-05 14:14] VITALS: BP 157/95; PULSE 79
--- NOTE | 2024-08-07 10:14 | Pharmacy Report ---
Pharmacist Stroke Counseling - Date of Service August 07, 2024 - Scope: Pharmacy has been consulted to provide medication discharge counseling for this patient admitted with ischemic stroke as per the Pharmacist Discharge Counseling for Stroke Patients Protocol. - Medications on Discharge: New Rx's Medication Instructions Recorded aspirin 81 mg tablet,delayed 81 mg PO DAILY #30 tabs 08/05/24 release atorvastatin 40 mg tablet 80 mg (2 x 40 mg) PO QAM #30 tabs 08/05/24 clopidogrel 75 mg tablet 75 mg PO QAM #30 tabs 08/05/24 losartan 25 mg tablet 50 mg (2 x 25 mg) PO DAILY #60 tabs 08/05/24 - Action: The above medications, specifically ones for stroke treatment/prophylaxis, have been reviewed in detail with the patient and/or patient traveling representative(s) prior to discharge. This includes indication, common adverse reactions, drug interactions, and medication administration. Medication counseling has been employed using the teach-back method to ensure understanding. - Outcome: The patient and/or patient traveling representative(s) have demonstrated understanding of the medications. Thank you for allowing pharmacy to be involved in the care of this patient. Corrine mensah call [phone] with any additional questions
--- NOTE | 2024-08-09 11:45 | XCELERA ---
[id number]
== END 2024-08-05 14:40 | disposition home or self-care (01) | DRG 64 ==
LOC: ED 10:35 → SUATTDRO 11:53 → 2E 11:53 → INTOOBSV 11:53 → 2E 12:42

== ENCOUNTER 2024-10-14 09:26 | Observation (INO) ==
[2024-10-14] MEDS: SODIUM CHLORIDE 0.9% 1,000 ML IV ONE (09:51)
[2024-10-14] MEDS: OPTIRAY 320 125ml IV ONE (10:01)
[2024-10-14 10:05] LABS: Hematocrit (blood only) 47.7 % (42.0-52.0); Hemoglobin 16.3 g/dl (14.0-18.0); Immature Granulocytes # (auto) 0.05 K/uL (0.01-0.20); Immature Granulocytes % (auto) 0.4 %; Mean Corpuscular Hemoglobin 30.3 pg (25.0-34.0); Mean Corpuscular Volume 88.7 fL (80.0-100.0); Platelet Count 252 K/uL (130-400); RDW Standard Deviation 39.3 fL (36.4-46.3); Red Blood Count 5.38 M/uL (4.70-6.10); White Blood Count 13.15 K/ul (4.8-10.8)
--- NOTE | 2024-10-14 10:19 | CT Scan Report ---
CT SCAN OF THE BRAIN WITHOUT IV CONTRAST CLINICAL HISTORY: Dizziness. History of cerebrovascular accident. COMPARISON STUDY: MRI of the brain August 04, 2024. Head CT and CTA of the head October 02, 2024. TECHNIQUE: Unenhanced axial CT scan of the brain was performed from the vertex to the skull base. A dose lowering technique was utilized adhering to the principles of ALARA. FINDINGS: Brain parenchyma: No acute intracranial hemorrhage, midline shift or mass effect is present. Cuevas-whi te matter differentiation is preserved. There are no extra-axial fluid collections. There are no find ings to suggest acute dural sinus thrombosis or acute territorial infarct. A 1.6 cm hypodensity withi n left blancas radiata represents an old infarct. This is unchanged. Ventricles, sulci, cisterns: There is no hydrocephalus. The basal cisterns are patent. Calvarium: Unremarkable. Sinuses and mastoids: The visualized paranasal sinuses are clear. The mastoid air cells are well pneu matized. Orbits: The bony orbits are grossly intact. IMPRESSION: 1. No acute intracranial findings. 2. Redemonstration of an old infarct within the left blancas radiata. ACT 112: Negative or not required by law. Electronically signed by: Jose Laogs M.D. 10/14/2024 10:16 AM
--- NOTE | 2024-10-14 10:24 | CT Scan Report ---
CT ANGIOGRAPHY OF THE NECK WITH CONTRAST CLINICAL HISTORY: dizzy, prior cva COMPARISON STUDY: CTA of the neck October 02, 2024. Technique: CT angiography of the carotid and vertebral arteries was obtained using Optiray and 3D rec onstruction on an independent workstation. NASCET criteria was utilized. Automated exposure control was utilized for the study. A dose lowering technique was utilized adhering to the principles of ALA RA. Findings: This exam is mildly compromised by motion artifact. Visualized portions of the lung apices are unremarkable. Is no cervical lymphadenopathy. There are no cervical spine fractures. There is mod erate plaque within the proximal bilateral internal carotid arteries without significant stenosis. A linear filling defect within the proximal right internal carotid artery on image 233 of 390 is unchan ged since prior exam. The cervical bilateral vertebral arteries are patent. CTA of the head will be r eported separately. IMPRESSION: 1. Moderate atherosclerotic plaque within the proximal bilateral internal carotid arteries without si gnificant stenosis. 2. No change in a filling defect within the proximal right internal carotid artery since prior exam. This could represent a web or chronic dissection. ACT 112: Negative or not required by law. Electronically signed by: Jose Lagos M.D. 10/14/2024 10:22 AM
[2024-10-14 10:27] LABS: Alanine Aminotransferase 27.0 U/L (7-52); Albumin Globulin Ratio 1.4 (0.9-2); Alkaline Phosphatase 117.0 U/L (34-104); Anion Gap 9.0 (3-11); Bilirubin,Total 0.8 mg/dl (0.2-1.0); Blood Urea Nitrogen 32.0 mg/dl (6-23); Calcium 9.5 mg/dl (8.6-10.3); Carbon Dioxide 30.0 mmol/L (21-32); Chloride 102.0 mmol/L (98-107); Creatinine Clr Calc Pharmacy 39.9 ml/min; Globulin 3.3 gm/dl (2.5-4.0); Glucose 126.0 mg/dl (70-99(Fasting)); Lipase 31.0 U/L (11-82); Magnesium 2.2 mg/dl (1.7-2.4); Potassium 3.7 mmol/L (3.5-5.1); Sodium 141.0 mmol/L (136-145); Total Protein 7.9 gm/dl (6.0-8.3)
--- NOTE | 2024-10-14 10:30 | CT Scan Report ---
CTA ANGIOGRAPHY OF THE HEAD CLINICAL HISTORY: dizzy, prior cva COMPARISON STUDY: CTA of the head October 02, 2024. TECHNIQUE: Helical axial images of the head were obtained following uneventful intravenous administr ation of 112 cc of Optiray. Sagittal and coronal reconstructions were viewed as well as maximal inten sity projections on an independent 3-D workstation. Automated exposure control was utilized for the study. A dose lowering technique was utilized adhering to the principles of ALARA. CT DOSE: 1166.82 mGy.cm FINDINGS: Please note that the head CT will be reported separately. No acute intracranial hemorrhage, midline shift or mass effect is present. Ventricular system is normal. The basal cisterns are patent . An old left blancas radiata infarct is unchanged. The bilateral M1, M2, A1 and A2 segments are paten t. There is mild plaque within the cavernous carotids without stenosis. Posterior circulation is inta ct. There is no intracranial aneurysm, dissection or vessel occlusion. IMPRESSION: No large vessel occlusion. No intracranial aneurysm. ACT 112: Negative or not required by law. Electronically signed by: Jose Lagos M.D. 10/14/2024 10:28 AM
[2024-10-14 10:39] LABS: INR 1.1 (0.9-1.1); Prothrombin Time 11.4 Seconds (9.0-12.0)
--- NOTE | 2024-10-14 10:43 | XRay Report ---
XR chest 1V portable CLINICAL HISTORY: dizziness, sob COMPARISON STUDY: No previous studies for comparison. FINDINGS: Lung volumes are normal. Lungs are clear. There is no pneumothorax or pleural effusion. Car diac size is normal. Mediastinal contours are normal. There is no evidence for pulmonary edema. IMPRESSION: No acute cardiopulmonary findings. ACT 112: Negative or not required by law. Electronically signed by: Jose Lagos M.D. 10/14/2024 10:42 AM
[2024-10-14 10:44] LABS: Thyroid Stimulating Hormone 5.063 uIu/ml (0.300-4.500)
--- NOTE | 2024-10-14 11:36 | Emergency Department Note ---
Impression & Plan UYEN (acute kidney injury), Atrial fibrillation with rapid ventricular response, Dizziness ED Provider Note ED Provider Note NAME: MIKE RIOJAS AGE:63 SEX: Male : 1960 ARRIVES VIA: Private vehicle INFORMANT: Patient ED PROVIDER(s): Deyanira Irizarry DO CHIEF COMPLAINT: Dizziness, sweating, near syncope HPI: This is a 63-year-old male presents emergency department complaining of dizziness, sweating, and a near syncopal event today while he was standing outside fishing with family members. Patient states he has had intermittent episodes of dizziness last few weeks, and also noted intermittent episodes of chest tightness. There is no chest tightness or pain, no palpitations associated with today's event. Patient states he was diagnosed with atrial fibrillation back in the spring. He states he does see Dr. Ybarra of cardiology and has been taking his medications as prescribed. He denies any recent fevers, chills, or illness. He states he is taking his medications as prescribed including his anticoagulation. No recent change in bowel movements or urine. No recent leg swelling. He states symptoms today were different than stroke earlier this year. PAST MEDICAL HISTORY:See Below PAST SURGICAL HISTORY:See Below FAMILY HISTORY:See Below SOCIAL HISTORY:See Below HOME MEDICATIONS:See Below ALLERGIES:See Below VITALS:See Below PHYSICAL EXAMINATION: GENERAL: alert, diaphoretic appearing, well nourished, no distress, non-toxic EYE EXAM: normal conjunctiva, PERRL and EOM's grossly intact OROPHARYNX: no exudate, no erythema, lips, buccal mucosa, and tongue normal and mucous membranes are dry NECK: supple, no nuchal rigidity, no adenopathy, non-tender LUNGS: Clear to auscultation. Normal chest wall mechanics, no w/r/r HEART: no murmurs, S1 normal and S2 normal ABDOMEN: abdomen soft, non-tender, normo-active bowel sounds, no masses, no rebound or guarding. SKIN: no rashes, petechiae, orbruising UPPER EXTREMITIES: upper extremities are grossly normal. FROM, nml pulses b/l. LOWER EXTREMITIES: No pitting edema. FROM, nml pulses b/l. NEURO EXAM: Normal sensorium, cranial nerves II-XII grossly intact, normal speech, no facial droop,nogross weakness of arms, no gross weakness of legs. Gross sensation intact. No ataxia. Vital Signs: reviewed and remarkable Differential Diagnosis: benign positional vertigo, dehydration, hypovolemia, anemia, tumor, hypoglycemia, electrolyte abnormalities, ICH, CVA, dysrhythmia, as well as others were entertained. MEDICAL DECISION MAKING: This is a 63-year-old male presents emergency department after an episode of dizziness and diaphoresis. Patient admits to several similar episodes as well as intermittent chest pain. He was noted to be in A-fib with RVR on arrival, mildly hypertensive however other vital signs stable. Labs drawn and sent, IV established, EKG and chest ray performed at bedside interpreted me and patient monitored on telemetry. Given recent CVA earlier this spring and use of anticoagulation patient sent for additional CT imaging. He was started on IV fluids and overall heart rate began to improve with additional volume repletion. I do suspect there is a component of dehydration contributing to his rapid A- fib although he was diagnosed with A-fib earlier this year and is on diltiazem. Patient noted to have UYEN. After liter of IV fluids he did produce a urine specimen, no evidence of infection. Patient's other labs are reassuring. Given concern for recent symptomatology, accompanying intermittent chest pain, new UYEN, recent CVA, we discussed further inpatient observation and management. Patient in agreement as well as family at bedside who persuaded him. Case discussed with the hospitalist team for additional evaluation and management. Consultation(s): 1158: Discussed with PERFECTO Cottrell hospitalist team, for additional evaluation and management. ER Treatment Provided: See below Diagnostics Interpreted By Me: -ECG: Atrial fibrillation at a rate of 106, normal axis, normal intervals, nonspecific ST/T wave changes -Cardiac Monitoring: An order was placed for continuous cardiac monitoring. The monitor shows a rate of 122 with a.fib rhythm. -Laboratory studies: As stated above and show below. -Imaging studies: X-ray Chest: A single view study of the chest was reviewed and was negative for cardiomegaly, focal infiltrate, effusion, pulmonary edema, or wide mediastinum. Triage Nursing Note Reviewed Prior/Outside Records Reviewed- cardiology office visit from September 2024 reviewed Past Med/Surg History Problem List (Updated 10/14/24 @ 11:36 by Deyanira Irizarry DO) Dizziness (Acute) Atrial fibrillation with rapid ventricular response (Acute) UYEN (acute kidney injury) (Acute) Carotid artery dissection Carotid stenosis Amaurosis fugax of right eye Dyslipidemia Antiplatelet or antithrombotic long-term use Chronic anticoagulation Paroxysmal atrial fibrillation Atrial fibrillation Dissection of right carotid artery Hypokalemia (Acute) Hypertension (Acute) Vitamin D deficiency Anxiety Leukocytosis Impaired fasting glucose Gastroesophageal reflux disease Medical History Acute CVA (cerebrovascular accident) History of stroke Surgical History S/P wisdom tooth extraction S/P hernia repair History of shoulder surgery History of knee surgery Family History Mother COPD (chronic obstructive pulmonary disease) Hypertension Brother Hypertension Uncle Myocardial infarction Other No family history of adverse response to anesthesia Denies family history of Ovarian cancer Prostate cancer Breast cancer Colorectal cancer Social History Smoking Status: Never smoker Second Hand Exposure: No; Do You Dip or Chew Tobacco: No; Hx Alcohol Use: No Hx Substance Use: No Preferred Language: Cuban Communication Ability: Effective Visual Impairment: No Limitations Hearing Ability: Normal Ladle Puller Required: No Beliefs That Will Affect Care: None marital status: / Current Living Situation: Alone current occupational status: employed current occupation: [employer] How many Children do You have: 3 Feels Safe at Home: Yes Childhood Exposure to Second-Hand Smoke: No Diet: regular Diet Comment: regular caffeine: Yes (Soda ) Dental Care, Regularly: No Physical Activity Frequency: Daily Seatbelt Use: always Sunscreen Use: Yes Assistive Devices: None Allergies Allergies Allergy/AdvReac Type Severity Reaction Status Date / Time No Known Allergies Allergy Verified 10/05/24 10:31 Home Meds Home Medications Medication Instructions Recorded Confirmed aspirin 81 mg tablet,delayed 0 mg PO DAILY 10/14/24 10/14/24 release clopidogrel 75 mg tablet 0 mg PO QAM 10/14/24 10/14/24 Previous Rx's Medication Instructions Recorded atorvastatin 80 mg tablet 80 mg PO QAM #30 tabs 08/31/24 losartan 100 mg tablet 100 mg PO DAILY #90 tabs 08/31/24 apixaban 5 mg tablet (Eliquis) 5 mg PO BID #60 tabs 09/07/24 diltiazem HCl 180 mg 180 mg PO DAILY #90 caps 09/25/24 capsule,extended release 24 hr hydrochlorothiazide 25 mg tablet 25 mg PO DAILY #30 tabs 10/05/24 Results & Data (ED) Vital Signs Vital Signs - 24 hr 10/14/24 09:28 10/14/24 09:42 10/14/24 09:47 Temperature 36.6 C Temperature Source Temporal Artery Scan Pulse Rate 72 104 H Pulse Rate [Apical] Pulse Rate from SpO2 Sensor Respiratory Rate 20 18 Respiratory Effort / Characteristics Non-Labored Respiratory Depth Normal Blood Pressure 98/64 L Blood Pressure [Left Arm] Blood Pressure Mean 75 Blood Pressure Mean [Left Arm] Pulse Oximetry 96 Oxygen Delivery Method Room Air Room Air Sepsis Recent Fever Within 48 Hours No Sepsis New/Unexplained Change in Mental Status Yes Sepsis Action Taken by Nursing No Action Required 10/14/24 09:47 10/14/24 10:15 10/14/24 10:21 Temperature 36.6 C Temperature Source Temporal Artery Scan Pulse Rate 103 H 105 H Pulse Rate [Apical] 113 H Pulse Rate from SpO2 Sensor 84 86 Respiratory Rate 18 16 19 Respiratory Effort / Characteristics Respiratory Depth Blood Pressure Blood Pressure [Left Arm] 107/67 Blood Pressure Mean Blood Pressure Mean [Left Arm] 80 Pulse Oximetry 96 97 94 Oxygen Delivery Method Room Air Sepsis Recent Fever Within 48 Hours Sepsis New/Unexplained Change in Mental Status Sepsis Action Taken by Nursing 10/14/24 10:24 10/14/24 10:45 10/14/24 11:06 Temperature Temperature Source Pulse Rate 110 H 105 H Pulse Rate [Apical] Pulse Rate from SpO2 Sensor 102 H Respiratory Rate 15 Respiratory Effort / Characteristics Respiratory Depth Blood Pressure 112/86 Blood Pressure [Left Arm] Blood Pressure Mean 95 Blood Pressure Mean [Left Arm] Pulse Oximetry 97 Oxygen Delivery Method Sepsis Recent Fever Within 48 Hours Sepsis New/Unexplained Change in Mental Status Sepsis Action Taken by Nursing 10/14/24 11:15 10/14/24 11:26 10/14/24 11:30 Temperature Temperature Source Pulse Rate 89 Pulse Rate [Apical] 93 H Pulse Rate from SpO2 Sensor 84 Respiratory Rate 19 18 Respiratory Effort / Characteristics Respiratory Depth Blood Pressure 107/77 Blood Pressure [Left Arm] 107/77 Blood Pressure Mean 94 Blood Pressure Mean [Left Arm] 87 Pulse Oximetry 97 97 Oxygen Delivery Method Sepsis Recent Fever Within 48 Hours Sepsis New/Unexplained Change in Mental Status Sepsis Action Taken by Nursing 10/14/24 11:45 10/14/24 12:09 10/14/24 12:21 Temperature Temperature Source Pulse Rate 83 92 H 94 H Pulse Rate [Apical] Pulse Rate from SpO2 Sensor 71 83 81 Respiratory Rate 20 21 20 Respiratory Effort / Characteristics Respiratory Depth Blood Pressure Blood Pressure [Left Arm] Blood Pressure Mean Blood Pressure Mean [Left Arm] Pulse Oximetry 97 98 98 Oxygen Delivery Method Sepsis Recent Fever Within 48 Hours Sepsis New/Unexplained Change in Mental Status Sepsis Action Taken by Nursing 10/14/24 12:30 Temperature Temperature Source Pulse Rate 87 Pulse Rate [Apical] Pulse Rate from SpO2 Sensor 87 Respiratory Rate 20 Respiratory Effort / Characteristics Respiratory Depth Blood Pressure Blood Pressure [Left Arm] Blood Pressure Mean Blood Pressure Mean [Left Arm] Pulse Oximetry 97 Oxygen Delivery Method Sepsis Recent Fever Within 48 Hours Sepsis New/Unexplained Change in Mental Status Sepsis Action Taken by Nursing Laboratory Data 10/14/24 09:58 10/14/24 09:58 Lab Results 10/14/24 10/14/24 Range/Units 09:58 11:03 WBC 13.15 H (4.8-10.8) K/ul RBC 5.38 (4.70-6.10) M/uL Hgb 16.3 (14.0-18.0) g/dl Hct 47.7 (42.0-52.0) % MCV 88.7 (80.0-100.0) fL MCH 30.3 (25.0-34.0) pg MCHC 34.2 (32.0-36.0) g/dL RDW Std Deviation 39.3 (36.4-46.3) fL RDW Coeff of Janet 12.2 (11.5-14.5) % Plt Count 252 (130-400) K/uL MPV 12.5 H (9.4-12.4) fL Immature Gran % (Auto) 0.4 % Neut % (Auto) 71.2 % Lymph % (Auto) 18.4 % [place] % (Auto) 8.9 % Eos % (Auto) 0.6 % Baso % (Auto) 0.5 % Neut # (Auto) 9.36 H (1.40-6.50) K/uL Lymph # (Auto) 2.42 (1.20-3.40) K/uL [place] # (Auto) 1.17 H (0.11-0.59) K/uL Eos # (Auto) 0.08 (0.00-0.50) K/uL Baso # (Auto) 0.07 (0.00-0.20) K/uL Immature Gran # (Auto) 0.05 (0.01-0.20) K/uL PT 11.4 (9.0-12.0) Seconds INR 1.1 (0.9-1.1) Sodium 141 (136-145) mmol/L Potassium 3.7 (3.5-5.1) mmol/L Chloride 102 (98-107) mmol/L Carbon Dioxide 30 (21-32) mmol/L Anion Gap 9 (3-11) BUN 32 H (6-23) mg/dl Creatinine 2.53 H (0.6-1.4) mg/dl Est Cr Clr Drug Dosing 39.9 ml/min eGFR 28.11 BUN/Creatinine Ratio 12.6 (10-20) Glucose 126 H (70-99(Fasting)) mg/dl Calcium 9.5 (8.6-10.3) mg/dl Magnesium 2.2 (1.7-2.4) mg/dl Total Bilirubin 0.8 (0.2-1.0) mg/dl AST 18 (13-39) U/L ALT 27 (7-52) U/L Alkaline Phosphatase 117 H (34-104) U/L Troponin I High Sens 6.7 (0-20) pg/ml Total Protein 7.9 (6.0-8.3) gm/dl Albumin 4.6 (3.4-5.0) gm/dl Globulin 3.3 (2.5-4.0) gm/dl Albumin/Globulin Ratio 1.4 (0.9-2) Lipase 31 (11-82) U/L TSH 5.063 H (0.300-4.500) uIu/ml Free T4 0.85 (0.61-1.60) ng/dl Urine Color Yellow Urine Appearance Clear (Clear) Urine pH 6.0 (4.5-7.5) Ur Specific [place] 1.027 (1.000-1.030) Urine Protein Negative (Negative) Urine Glucose (UA) Negative (Negative) Urine Ketones Negative (Negative) Urine Blood Negative (Negative) Urine Nitrite Negative (Negative) Urine Bilirubin Negative (Negative) Urine Urobilinogen Negative (Negative) Ur Leukocyte Esterase Negative (Negative) Urine Comment Anaplasma Smear See Comment Babesia Smear See Comment Lyme Disease Screen Negative (Negative) Administered Medications Lactated Ringer's (Lr) 1,000 mls @ 125 mls/hr IV .Q8H AMBIKA Stop: 10/15/24 04:44 Last Admin: 10/14/24 13:23 Dose: 125 mls/hr Documented By: RYLEY Discontinued Medications Sodium Chloride (Nss) 1,000 mls @ 999 mls/hr IV .Q1H1M ONE Stop: 10/14/24 10:48 Last Infusion: 10/14/24 10:52 Dose: Infused Documented By: Admin: 10/14/24 09:51 Dose: 999 mls/hr Documented By: RYLEY Ioversol (Optiray 320 125ml) 112 ml IV ONCE ONE Stop: 10/14/24 10:02 Last Admin: 10/14/24 10:01 Dose: 112 ml Documented By: TORI Imaging Data Radiologist's Impression: Chest X-Ray 10/14/24 09:48 XR chest 1V portable CLINICAL HISTORY: dizziness, sob COMPARISON STUDY: No previous studies for comparison. FINDINGS: Lung volumes are normal. Lungs are clear. There is no pneumothorax or pleural effusion. Cardiac size is normal. Mediastinal contours are normal. There is no evidence for pulmonary edema. IMPRESSION: No acute cardiopulmonary findings. ACT 112: Negative or not required by law. Electronically signed by: Jose Lagos M.D. 10/14/2024 10:[address] 10/14/24 09:48 CT SCAN OF THE BRAIN WITHOUT IV CONTRAST CLINICAL HISTORY: Dizziness. History of cerebrovascular accident. COMPARISON STUDY: MRI of the brain August 04, 2024. Head CT and CTA of the head October 02, 2024. TECHNIQUE: Unenhanced axial CT scan of the brain was performed from the vertex to the skull base. A dose lowering technique was utilized adhering to the principles of ALARA. FINDINGS: Brain parenchyma: No acute intracranial hemorrhage, midline shift or mass effect is present. Cuevas-white matter differentiation is preserved. There are no extra- axial fluid collections. There are no findings to suggest acute dural sinus thrombosis or acute territorial infarct. A 1.6 cm hypodensity within left blancas radiata represents an old infarct. This is unchanged. Ventricles, sulci, cisterns: There is no hydrocephalus. The basal cisterns are patent. Calvarium: Unremarkable. Sinuses and mastoids: The visualized paranasal sinuses are clear. The mastoid air cells are well pneumatized. Orbits: The bony orbits are grossly intact. IMPRESSION: 1. No acute intracranial findings. 2. Redemonstration of an old infarct within the left blancas radiata. ACT 112: Negative or not required by law. Electronically signed by: Jsoe Lagos M.D. 10/14/2024 10:16 AM Head CTA 10/14/24 09:56 CTA ANGIOGRAPHY OF THE HEAD CLINICAL HISTORY: dizzy, prior cva COMPARISON STUDY: CTA of the head October 02, 2024. TECHNIQUE: Helical axial images of the head were obtained following uneventful intravenous administration of 112 cc of Optiray. Sagittal and coronal reconstructions were viewed as well as maximal intensity projections on an independent 3-D workstation. Automated exposure control was utilized for the study. A dose lowering technique was utilized adhering to the principles of ALARA. CT DOSE: 1166.82 mGy.cm FINDINGS: Please note that the head CT will be reported separately. No acute intracranial hemorrhage, midline shift or mass effect is present. Ventricular system is normal. The basal cisterns are patent. An old left blancas radiata infarct is unchanged. The bilateral M1, M2, A1 and A2 segments are patent. There is mild plaque within the cavernous carotids without stenosis. Posterior circulation is intact. There is no intracranial aneurysm, dissection or vessel occlusion. IMPRESSION: No large vessel occlusion. No intracranial aneurysm. ACT 112: Negative or not required by law. Electronically signed by: Jose Lagos M.D. 10/14/2024 10:28 AM Neck CTA 10/14/24 09:56 CT ANGIOGRAPHY OF THE NECK WITH CONTRAST CLINICAL HISTORY: dizzy, prior cva COMPARISON STUDY: CTA of the neck October 02, 2024. Technique: CT angiography of the carotid and vertebral arteries was obtained using Optiray and 3D reconstruction on an independent workstation. NASCET criteria was utilized. Automated exposure control was utilized for the study. A dose lowering technique was utilized adhering to the principles of ALARA. Findings: This exam is mildly compromised by motion artifact. Visualized portions of the lung apices are unremarkable. Is no cervical lymphadenopathy. There are no cervical spine fractures. There is moderate plaque within the proximal bilateral internal carotid arteries without significant stenosis. A linear filling defect within the proximal right internal carotid artery on image 233 of 390 is unchanged since prior exam. The cervical bilateral vertebral arteries are patent. CTA of the head will be reported separately. IMPRESSION: 1. Moderate atherosclerotic plaque within the proximal bilateral internal carotid arteries without significant stenosis. 2. No change in a filling defect within the proximal right internal carotid artery since prior exam. This could represent a web or chronic dissection. ACT 112: Negative or not required by law. Electronically signed by: Jose Lagos M.D. 10/14/2024 10:22 AM Discharge Plan Visit Data Chief Complaint: Stroke/CVA Symptoms Stated Complaint: DIZZY,VISION,LIGHT HEADED ED Provider: Deyanira Irizarry Discharge Problem: UYEN (acute kidney injury), Atrial fibrillation with rapid ventricular response, Dizziness Patient Disposition: Admitted As Inpatient Condition: Fair Discharge Instructions Interventions: ED Discharge Assessment Last Done: 10/14/24 13:21
[2024-10-14 11:41] LABS: Appearance Urine Clear (Clear); Glucose Urine UA Negative (Negative)
--- NOTE | 2024-10-14 11:56 | Electrocardiogram Report ---
Test Reason : Blood Pressure : */* mmHG Vent. Rate : 106 BPM Atrial Rate : * BPM P-R Int : * ms QRS Dur : 90 ms QT Int : 356 ms P-R-T Axes : * 26 34 degrees QTcB Int : 472 ms Atrial fibrillation with rapid ventricular response Abnormal ECG When compared with ECG of 04-Aug-2024 11:09, Atrial fibrillation has replaced Sinus rhythm Confirmed by Hercalio Thomas ([id number]) on 10/14/2024 11:56:11 AM Referred By: Confirmed By: Heraclio Thomas
--- NOTE | 2024-10-14 12:05 | History & Physical Report ---
Date of Service October 14, 2024 Assessment & Plan (1) Dizziness: (2) UYEN (acute kidney injury): (3) Atrial fibrillation with rapid ventricular response: (4) History of stroke: Plan Mariano is a 63M with a PMHx of CVA (july 2024), HTN, afib (on Eliquis) LENCHO and Vit D Deficiency who presents to the hospital after an episode of dizziness while fishing. found to have an UEYN, admitted for IV fluids and telemetry monitoring. #Near Syncope - suspect related to dehydration (heat plus HCTZ as most likely combination of "why now") Lyme negative. Anaplasmosis and Babesiosis DNA - pending Check Orthostatics Mild Leukocytosis - suspect concentration with dehydration, no illness symptoms. UA negative, CXR without acute findings. Mild TSH elevation, but T4 WNL #UYEN Cr 2.53 on admission, Baseline ~ 1.2 Hold HCTZ and losartan Received 1L IVFs. Continue 2L IVF maintenance rate AM BMP and mag #Afib | HTN Follows with Cardiology - Dr. Ybarra. Recent court recording monitor with 199 episode of afib with rates up to 237. losartan and HCTZ on hold with UYEN Continue Eliquis (pt takes breakfast/lunch, encouraged to take breakfast and dinner) and Diltizem Monitor on tele - if uncontrolled rates, consider cardiology consult for med adjustments if symptoms don't improve with rehydration #Hx of CVA Continue aspirin. Should no longer be on plavix. Continue Statin Other causes for his symptoms on admission, no acute process on head CT - Brain MRI deferred Head and neck CTA without large vessel occlusions Dispo: Admit to med/telemetry DVT prophy: Home Eliquis Family updated at bedside 10/14 History of Present Illness Chief Complaint: dizziness Primary Care Provider: Harry Miller DO Mariano is a 63M with a PMHx of CVA (july 2024), HTN, afib (on Eliquis) LENCHO and Vit D Deficiency who presents to the hospital after an episode of dizziness while fishing. Went out fishing, having to take multiple break, very sweaty but also cold at the same time. Got out of the truck once because he thought he was going to throw up, did not throw up but didnot. was only outside for about 1.5 hours from 6 AM to 730.Report no energy the last few days - having to take breaks every 5 minutes, which is very abnormal for him. Does not feel like he his in afib, states that he can usually feel these episodes. Recently on the holter monitor he could recall all the events that we caught. States that he normally does [employer] for employment on Tuesday he had a job that would normally take him 40 minutes and it took him 8 hours. Just feeling very fatigued and rundown. Reports that he is urinating a normal amount but states that it looks like apple juice No ETOH use/ illicit drugs or smoking ED Course: NSS 1L Allergies Allergy/AdvReac Type Severity Reaction Status Date / Time No Known Allergies Allergy Verified 10/05/24 10:31 Home Medications Medication Instructions Recorded Confirmed Type atorvastatin 80 mg tablet 80 mg PO QAM #30 tabs 08/31/24 10/14/24 Rx losartan 100 mg tablet 100 mg PO DAILY #90 tabs 08/31/24 10/14/24 Rx apixaban 5 mg tablet (Eliquis) 5 mg PO BID #60 tabs 09/07/24 10/14/24 Rx diltiazem HCl 180 mg 180 mg PO DAILY #90 caps 09/25/24 10/14/24 Rx capsule,extended release 24 hr hydrochlorothiazide 25 mg tablet 25 mg PO DAILY #30 tabs 10/05/24 10/14/24 Rx aspirin 81 mg tablet,delayed 0 mg PO DAILY 10/14/24 10/14/24 History release clopidogrel 75 mg tablet 0 mg PO QAM 10/14/24 10/14/24 History Past Med/Surg History Problem List (Updated 10/14/24 @ 11:36 by Deyanira Irizarry DO) Dizziness (Acute) Atrial fibrillation with rapid ventricular response (Acute) UYEN (acute kidney injury) (Acute) Carotid artery dissection Carotid stenosis Amaurosis fugax of right eye Dyslipidemia Antiplatelet or antithrombotic long-term use Chronic anticoagulation Paroxysmal atrial fibrillation Atrial fibrillation Dissection of right carotid artery Hypokalemia (Acute) Hypertension (Acute) Vitamin D deficiency Anxiety Leukocytosis Impaired fasting glucose Gastroesophageal reflux disease Medical History Acute CVA (cerebrovascular accident) History of stroke Surgical History S/P wisdom tooth extraction S/P hernia repair History of shoulder surgery History of knee surgery Family History Mother COPD (chronic obstructive pulmonary disease) Hypertension Brother Hypertension Uncle Myocardial infarction Other No family history of adverse response to anesthesia Denies family history of Ovarian cancer Prostate cancer Breast cancer Colorectal cancer Social History Smoking Status: Never smoker Second Hand Exposure: No; Do You Dip or Chew Tobacco: No; Hx Alcohol Use: No Hx Substance Use: No Preferred Language: Polish Communication Ability: Effective Visual Impairment: No Limitations Hearing Ability: Normal 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 Required: No Beliefs That Will Affect Care: None marital status: / Current Living Situation: Alone current occupational status: employed current occupation: [employer] How many Children do You have: 3 Feels Safe at Home: Yes Childhood Exposure to Second-Hand Smoke: No Diet: regular Diet Comment: regular caffeine: Yes (Soda ) Dental Care, Regularly: No Physical Activity Frequency: Daily Seatbelt Use: always Sunscreen Use: Yes Assistive Devices: None Review of Systems Review of Systems: All systems reviewed & are unremarkable except as noted in Subjective Physical Exam Physical Exam: General: NAD, VS as above HEENT: MM dry Resp: normal respiratory effort, lungs clear to auscultation CV: afib, no murmur, Abd: normal bowel sounds, non tender, no hepatosplenomegaly Extremities: Moves all extremities, no edema Neuro: A&O x3, Skin: intact, no lesions noted Results & Data Results & Data Vital Signs (Past 12 Hours) Vital Signs Temp Pulse Pulse Resp BP BP Pulse Ox 10/14/24 11:30 107/77 10/14/24 11:26 93 H 18 107/77 97 10/14/24 11:15 89 19 97 10/14/24 11:06 105 H 15 97 10/14/24 10:45 112/86 10/14/24 10:24 110 H 10/14/24 10:21 105 H 19 94 10/14/24 10:15 103 H 16 97 10/14/24 09:47 97.9 F 113 H 18 107/67 96 10/14/24 09:47 10/14/24 09:42 104 H 18 10/14/24 09:28 97.9 F 72 20 98/64 L 96 O2 Del Method 10/14/24 11:30 10/14/24 11:26 10/14/24 11:15 10/14/24 11:06 10/14/24 10:45 10/14/24 10:24 10/14/24 10:21 10/14/24 10:15 10/14/24 09:47 Room Air 10/14/24 09:47 Room Air 10/14/24 09:42 10/14/24 09:28 Room Air Laboratory Results CBC, coagulation, chemistry reviewed TSH reviewed Lipase reviewed UA reviewed Lyme screen reviewed Diagnostic Findings Head and neck CTA reviewed Head CT reviewed Chest x-ray reviewed Supervising Physician Co-Signing Physician Notes I personally examined the patient and verified all sanchez points of history and exam, discussed case, and agree with decision making with Jayden Lee PA-C Feeling weak. Works out in the heat. Recently started on hydrochlorothiazide. Vitals noted, in general he is awake and alert pleasant no distress. HEENT normocephalic atraumatic mucous membranes moist. Breathing unlabored no accessory muscle use good effort. Skin without rashes pallor or icterus. Neuro without focal deficits. Labs and diagnostics noted. Weakness/fatigue/near syncope/AKIseems to be the unlucky combination of starting on hydrochlorothiazide whenever the weather got very hot and humid combined with working outside in the heatstop hydrochlorothiazide, hold losartan for now. Hydrate IV. I anticipate rapid resolution in his UYEN, but we did discuss the small possibility of ATN (which would especially manifest if his creatinine is not improving in spite of fluids). Once he is home, hold off on hydrochlorothiazide (discussed with him that generally it is a very beneficial blood pressure medicine, but for him it appears to be a contributor to dehydration so an alternate medication may need to be soughtbut this will obviously depend on his blood pressures). Discussed better hydration when working outside and acknowledge that this can be quite difficult whenever he is working outside and does the kind of work that he does, but discussed better hydration goals. Otherwise as above PG Care Time/CCT Total # of Minutes Spent Total Time Spent with Patient: Total time spent is greater than 50% in coordination of care (as documented) at patient's floor/unit and/or counseling patient: Coding Level of Care Code 52358 INT INP/OBS CARE 75MIN Diagnoses Dizziness R42 UYEN (acute kidney injury) N17.9 Atrial fibrillation with rapid ventricular response I48.91 History of stroke Z86.73
[2024-10-14] MEDS: LACTATED RINGER'S 1,000 ML IV SCH (13:23)
[2024-10-14] MEDS ORDERED: POLYETHYLENE (MIRALAX) 17 GM PACK PO PRN (13:43)
[2024-10-14] MEDS ORDERED: ACETAMINOPHEN 325 MG TAB PO PRN (13:43)
[2024-10-14] MEDS ORDERED: ONDANSETRON INJ 2 MG/ML 2 ML VIAL IV PRN (13:43)
[2024-10-14 20:04] VITALS: RESP 18
[2024-10-14] MEDS: APIXABAN 5 MG TABLET PO SCH (20:15)
[2024-10-15 06:43] LABS: Hematocrit (blood only) 40.6 % (42.0-52.0); Hemoglobin 13.9 g/dl (14.0-18.0); Mean Corpuscular Hemoglobin 30.4 pg (25.0-34.0); Mean Corpuscular Volume 88.8 fL (80.0-100.0); Platelet Count 178 K/uL (130-400); RDW Standard Deviation 39.1 fL (36.4-46.3); Red Blood Count 4.57 M/uL (4.70-6.10); White Blood Count 10.30 K/ul (4.8-10.8)
[2024-10-15 07:16] LABS: Anion Gap 6.0 (3-11); Blood Urea Nitrogen 25.0 mg/dl (6-23); Calcium 8.4 mg/dl (8.6-10.3); Carbon Dioxide 30.0 mmol/L (21-32); Chloride 104.0 mmol/L (98-107); Creatinine Clr Calc Pharmacy 70.4 ml/min; Glucose 122.0 mg/dl (70-99(Fasting)); Magnesium 1.9 mg/dl (1.7-2.4); Potassium 3.7 mmol/L (3.5-5.1); Sodium 140.0 mmol/L (136-145)
--- NOTE | 2024-10-15 07:48 | Hospitalist Progress Note ---
Date of Service October 15, 2024 Assessment & Plan (1) Dizziness: (2) UYEN (acute kidney injury): (3) Atrial fibrillation with rapid ventricular response: (4) History of stroke: Plan Mariano is a 63M with a PMHx of CVA (july 2024), HTN, afib (on Eliquis) LENCHO and Vit D Deficiency who presents to the hospital after an episode of dizziness while fishing. found to have an UYEN, admitted for IV fluids and telemetry monitoring. Recent admission in July 2024 for CVA w/ discharge on ASA/Plavix however did have episodes of paroxysmal afib on holter monitor and was started on eliquis 5mg BID and was started on diltiazem 09/25/24. PCP started HCTZ 25mg on 10/05 for additional BP control, likely cause for presentation w/ dizziness and UYEN w/ Cr 2.53. #Near Syncope - suspect related to dehydration (heat plus HCTZ as most likely combination of "why now") Lyme negative. Anaplasmosis and Babesiosis DNA - pending Check Orthostatics - Mild Leukocytosis - suspect concentration with dehydration, no illness symptoms. UA negative, CXR without acute findings. Mild TSH elevation, but T4 WNL 10/15 - + Orthostatic VS. BP 98/64 on admission. Additional 2L LR ordered on admission. Cr 2.53--> 1.43. HCTZ remains on Hold as well as losartan. BP 149/77. Will avoid HCTZ for now, could consider low dose CCB) #UYEN Cr 2.53 on admission, Baseline ~ 1.2 Hold HCTZ and losartan Received 1L IVFs. Continue 2L IVF maintenance rate AM BMP and mag #Afib | HTN Follows with Cardiology - Dr. Ybarra. Recent quality assurance monitor body with 199 episode of afib with rates up to 237. losartan and HCTZ on hold with UYEN Continue Eliquis (pt takes breakfast/lunch, encouraged to take breakfast and dinner) and Diltizem Monitor on tele - if uncontrolled rates, consider cardiology consult for med adjustments if symptoms don't improve with rehydration #Hx of CVA Continue aspirin. Should no longer be on plavix. Continue Statin Other causes for his symptoms on admission, no acute process on head CT - Brain MRI deferred Head and neck CTA without large vessel occlusions *A1c 6.7, pre-DM -- will need counseling/follow up with PCP for such. Dispo: Admit to med/telemetry DVT prophy: Home Skyla Family updated at bedside 10/14 Admission and Anticipated Discharge Date Admission Date: October 14, 2024 Results & Data Results & Data Vital Signs (Past 12 Hours) Vital Signs Temp Pulse Pulse Resp BP Pulse Ox O2 Del Method 10/15/24 07:07 76 10/15/24 04:25 36.3 C L 74 18 149/77 H 97 Room Air 10/14/24 23:22 36.3 C L 80 18 111/69 95 Room Air 10/14/24 23:20 76 10/14/24 20:03 36.5 C 75 18 115/68 95 Room Air PG Care Time/CCT Total # of Minutes Spent Total Time Spent with Patient: Total time spent is greater than 50% in coordination of care (as documented) at patient's floor/unit and/or counseling patient: Coding Diagnoses Dizziness R42 UYEN (acute kidney injury) N17.9 Atrial fibrillation with rapid ventricular response I48.91 History of stroke Z86.73
[2024-10-15 08:13] VITALS: O2SAT 96
[2024-10-15] MEDS: ASPIRIN 81 MG ECTAB PO SCH (08:35)
[2024-10-15] MEDS: ATORVASTATIN 40 MG TAB PO SCH (08:35)
--- NOTE | 2024-10-15 11:10 | Discharge Summary ---
"Discharge Summary Date of Service October 15, 2024 Principal Dx & Hospital Course #1 = Principal Diagnosis (1) Dizziness: (2) UYEN (acute kidney injury): (3) Atrial fibrillation with rapid ventricular response: (4) History of stroke: Osmin Quintana is a 63M with a PMHx of CVA (july 2024), HTN, afib (on Eliquis) LENCHO and Vit D Deficiency who presents to the hospital after an episode of dizziness while fishing. Interestingly reporting recent start HCTZ 10/05 for BP control and called the office to report symptoms of dizziness/pre-syncope type symptoms however was told to let his body acclimate? Found to have UYEN w/ Cr 2.53 on admission and evidence for dehydration and possibly component of ATN from low BP from continued HCTZ use and was admitted for IV fluids and telemetry monitoring. Recent admission for CVA in July 2024 and discharged on ASA/Plavix however had event monitor which noted paroxysmal afib which correlated with his symptoms and was switched to eliquis with his aspirin. #Near Syncope - suspect related to dehydration and ongoing UYEN w/ recent addition of HCTZ for BP control. Lyme negative, Anaplasmosis and Babesia DNA pending. UA not appearing infected, CXR w/o evidence for PNA and no SOB reported or fever. CT head, CTA head/neck negative for acute CVA. MRI deferred. Telemetry NSR 60-70s., TSH mild elevation but T4 normal. T3 added and wnl - suspect reactive from acute dehydration Orthostatic VS + and BP 98/64 on admission. IVF hydration ordered in ER w/ bolus and provided additional 2L LR on admission BUN/Cr 25/1.43 and much improved, NSR 60-70s on telemetry and no further symptoms. Discussed with patient given HCTZ NEW medication and BP 127/74 this morining (144/80 prior to dc) and STOPPING HCTZ at dc and to monitor BP at home and f/u PCP. Likely able to resume home losartan in AM 7/8 pending BP. Also notable patient prior K 3.4 and w/ afib could irritate w/ electrolyte abn and would avoid this agent in this patient. Could consider low dose amlodipine in f/u PCP/cards if ongoing issues w/ HTN. #UYEN Cr 2.53 on admission, Baseline ~ 1.2 . Suspected UYEN 2nd to recent tx HCTZ and dehydration from heat recently. IVF hydration as above, Cr down to 1.48 and encouraged hydration at dc and plan to stop HCTZ and resume losartan in AM if BPs acceptable and f/u PCP, consideration repeat chemistries later this week. #Afib | HTN Follows with Cardiology - Dr. Ybarra. 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 Remained on eliquis BID. Losartan/HCTZ as above and consideration for amlodipine in f/u if needed for BP and was stable BP prior to dc #Hx of CVA Continue aspirin, statin. CT head/CTA head/neck as above -- notable can touch base w/ Neuro outpt as prior wanted repeat CTA neck to look at vasculature. Remained on eliquis for hx afib, aspirin. No longer on plavix. Of note, A1c prior 5.7 and should have f/u PCP for counseling, possible metformin therapy for risk/etc Notes For Next Care Provider Monitor BPs with stopping of HCTZ, could consider amlodipine if need for BP to prevent UYEN/dehydration and electrolyte derangements with afib Should have f/u discussion regarding pre-DM w/ A1c 5.7, consideration for metformin therapy for risk/prevention in f/u CTA did note continued filling defect, web vs chronic dissection - consider vascular referal in f/u pending repeat evaluation but reported felling well/renal function much improved and no further sx dizziness w/ holding HTN meds and hydration -- appears Neurology had ordered repeat imaging for evaluation and would touch base w/ them in follow up for review which could be done prior to referral for vascular? Anaplasmosis/Babesia DNA pending Medication Changes From Visit Stop HCTZ Stop plavix (on eliquis/aspirin) Admission HPI Per Admitting Provider Mariano is a 63M with a PMHx of CVA (july 2024), HTN, afib (on Eliquis) LENCHO and Vit D Deficiency who presents to the hospital after an episode of dizziness while fishing. Went out fishing, having to take multiple break, very sweaty but also cold at the same time. Got out of the truck once because he thought he was going to throw up, did not throw up but didnot. was only outside for about 1.5 hours from 6 AM to 730.Report no energy the last few days - having to take breaks every 5 minutes, which is very abnormal for him. Does not feel like he his in afib, states that he can usually feel these episodes. Recently on the holter monitor he could recall all the events that we caught. States that he normally does sark[employer] for employment on Tuesday he had a job that would normally take him 40 minutes and it took him 8 hours. Just feeling very fatigued and rundown. Reports that he is urinating a normal amount but states that it looks like apple juice No ETOH use/ illicit drugs or smoking ED Course: NSS 1L Admission Exam Per Admitting Provider General: NAD, VS as above HEENT: MM dry Resp: normal respiratory effort, lungs clear to auscultation CV: afib, no murmur, Abd: normal bowel sounds, non tender, no hepatosplenomegaly Extremities: Moves all extremities, no edema Neuro: A&O x3, Skin: intact, no lesions noted Discharge Exam General: 63yo male sitting up in bed, NAD, reports feeling well/hoping to go home HEENT: head atraumatic, normocephalic, mm improved, trachea midline Resp: even/unlabored, no wheezing/rales, on room air CV: NSR 60-70s on telemetry, no significant m/r/g, no pitting edema/calf tenderness GI: +BS, soft/NT : no wesley MSK/Neuro: nonfocal, not confused, answering questions appropriately, no slurred speech/facial droop Psych: AOx3, cooperative with exam Discharge Plan Discharge Items Patient Disposition: Home - Self-Care Reason For Visit: NEAR SYNCOPE,AFIB Discharge Diagnosis: Near Syncope, Dehydration, Acute Kidney Injury Condition on Discharge: Fair Goals: You have been hospitalized for an acute medical problem. During your stay at [facility], we have made an effort to correct the problem that brought you to the hospital while keeping you as comfortable as possible. Medications were used to bring your condition under control and your discharge instructions will include directions for any medications you should take after leaving the hospital. Please make sure you see your Primary Care Provider as part of your follow up plan. Activity: As commented below Non-emergency contact: Primary Care Provider and Dispatcher Service Chief Call non-emergency contact if: you have any medication questions, your symptoms worsen, your pain is not controlled, your pain is worsening and your pain is unusual for you Follow-up/Referrals: Yossi Ybarra Jr, MD, [facility] [Physician] - Harry Miller, [Primary Care Provider] - 10/22/24 9:20 am Diet: Heart Healthy Addtl Attending Provider Instructions: You have been hospitalized for dizziness and found to have acute kidney injury and lower blood pressure, likely from your new Hydrochlorothiazide for blood pressure. Your losartan and hydrochlorothiazide were placed on HOLD and your kidney function IMPROVED to 1.4 and we are recommending you continue to HOLD your losartan for another 24 hours but to STOP the hydrochlorothiazide. Please continue to monitor your blood pressures at home and stay well hydrated. Please ensure you are no longer taking the plavix and only taking the baby aspirin and eliquis for antiplatelet/blood thinner for recent stroke. You should follow up with primary care in the next 7-10 days to monitor your progress. Recommend consider repeating kidney labs in the next week to ensure you are back to baseline. Please return to the ER with any increased symptoms, chest pain, dizziness, shortness of breath or for any other symptoms concerning for you. Pending Studies at Discharge: No Stand-Alone Forms: My [facility] Neovacs, Smoking Cessation Medications and DC Order Prescriptions: Continued Eliquis 5 mg tablet 5 mg PO BID Qty: 60 0RF Hold Instructions: Cost diltiazem HCl 180 mg capsule,extended release 24hr 180 mg PO DAILY Qty: 90 3RF atorvastatin 80 mg tablet 80 mg PO QAM Qty: 30 2RF Discontinued hydrochlorothiazide 25 mg tablet 25 mg PO DAILY Qty: 30 2RF clopidogrel 75 mg tablet 0 mg PO QAM Patient Comments: 10/14- last filled 08/05/24 30 day supply #30 No Action dabigatran etexilate [Pradaxa] 150 mg capsule 150 mg PO BID Qty: 180 3RF losartan 100 mg tablet 100 mg PO DAILY aspirin 81 mg tablet,delayed release (DR/EC) 81 mg PO DAILY Discharge Orders: Discharge Order (Routine); Ordered 10/15/24 Ordered By: Vero Gregory Admission Data Admit Date/Time: 10/14/24 12:45 Attending Provider: Kevin Phelps Admit Provider: Lionel Paulson Primary Care Provider: Harry Miller Other Interventions: Discharge Summary Assessment (RN) Last Done: 10/15/24 11:28 Hospital Stay Data Consultations 10/14/24 11:59 ED Decision to Admit Stat Diagnostic Imagining Performed Chest X-Ray 10/14/24 09:48 XR chest 1V portable CLINICAL HISTORY: dizziness, sob COMPARISON STUDY: No previous studies for comparison. FINDINGS: Lung volumes are normal. Lungs are clear. There is no pneumothorax or pleural effusion. Cardiac size is normal. Mediastinal contours are normal. There is no evidence for pulmonary edema. IMPRESSION: No acute cardiopulmonary findings. ACT 112: Negative or not required by law. Electronically signed by: Jose Lagos M.D. 10/14/2024 10:[address] 10/14/24 09:48 CT SCAN OF THE BRAIN WITHOUT IV CONTRAST CLINICAL HISTORY: Dizziness. History of cerebrovascular accident. COMPARISON STUDY: MRI of the brain August 04, 2024. Head CT and CTA of the head October 02, 2024. TECHNIQUE: Unenhanced axial CT scan of the brain was performed from the vertex to the skull base. A dose lowering technique was utilized adhering to the principles of ALARA. FINDINGS: Brain parenchyma: No acute intracranial hemorrhage, midline shift or mass effect is present. Cuevas-white matter differentiation is preserved. There are no extra- axial fluid collections. There are no findings to suggest acute dural sinus thrombosis or acute territorial infarct. A 1.6 cm hypodensity within left blancas radiata represents an old infarct. This is unchanged. Ventricles, sulci, cisterns: There is no hydrocephalus. The basal cisterns are patent. Calvarium: Unremarkable. Sinuses and mastoids: The visualized paranasal sinuses are clear. The mastoid air cells are well pneumatized. Orbits: The bony orbits are grossly intact. IMPRESSION: 1. No acute intracranial findings. 2. Redemonstration of an old infarct within the left blancas radiata. ACT 112: Negative or not required by law. Electronically signed by: Jose Lagos M.D. 10/14/2024 10:16 AM Head CTA 10/14/24 09:56 CTA ANGIOGRAPHY OF THE HEAD CLINICAL HISTORY: dizzy, prior cva COMPARISON STUDY: CTA of the head October 02, 2024. TECHNIQUE: Helical axial images of the head were obtained following uneventful intravenous administration of 112 cc of Optiray. Sagittal and coronal reconstructions were viewed as well as maximal intensity projections on an independent 3-D workstation. Automated exposure control was utilized for the study. A dose lowering technique was utilized adhering to the principles of ALARA. CT DOSE: 1166.82 mGy.cm FINDINGS: Please note that the head CT will be reported separately. No acute intracranial hemorrhage, midline shift or mass effect is present. Ventricular system is normal. The basal cisterns are patent. An old left blancas radiata infarct is unchanged. The bilateral M1, M2, A1 and A2 segments are patent. There is mild plaque within the cavernous carotids without stenosis. Posterior circulation is intact. There is no intracranial aneurysm, dissection or vessel occlusion. IMPRESSION: No large vessel occlusion. No intracranial aneurysm. ACT 112: Negative or not required by law. Electronically signed by: Jose Lagos M.D. 10/14/2024 10:28 AM Neck CTA 10/14/24 09:56 CT ANGIOGRAPHY OF THE NECK WITH CONTRAST CLINICAL HISTORY: dizzy, prior cva COMPARISON STUDY: CTA of the neck October 02, 2024. Technique: CT angiography of the carotid and vertebral arteries was obtained using Optiray and 3D reconstruction on an independent workstation. NASCET criteria was utilized. Automated exposure control was utilized for the study. A dose lowering technique was utilized adhering to the principles of ALARA. Findings: This exam is mildly compromised by motion artifact. Visualized portions of the lung apices are unremarkable. Is no cervical lymphadenopathy. T here are no cervical spine fractures. There is moderate plaque within the proximal bilateral internal carotid arteries without significant stenosis. A linear filling defect within the proximal right internal carotid artery on image 233 of 390 is unchanged since prior exam. The cervical bilateral vertebral arteries are patent. CTA of the head will be reported separately. IMPRESSION: 1. Moderate atherosclerotic plaque within the proximal bilateral internal carotid arteries without significant stenosis. 2. No change in a filling defect within the proximal right internal carotid artery since prior exam. This could represent a web or chronic dissection. ACT 112: Negative or not required by law. Electronically signed by: Jose Lagos M.D. 10/14/2024 10:22 AM Pending Results Patient Have Any Pending Studies at Discharge: No Discharge Instructions Given to Patient (Per Discharging Provider) You have been hospitalized for dizziness and found to have acute kidney injury and lower blood pressure, likely from your new Hydrochlorothiazide for blood pressure. Your losartan and hydrochlorothiazide were placed on HOLD and your kidney function IMPROVED to 1.4 and we are recommending you continue to HOLD your losartan for another 24 hours but to STOP the hydrochlorothiazide. Please continue to monitor your blood pressures at home and stay well hydrated. Please ensure you are no longer taking the plavix and only taking the baby aspirin and eliquis for antiplatelet/blood thinner for recent stroke. You should follow up with primary care in the next 7-10 days to monitor your progress. Recommend consider repeating kidney labs in the next week to ensure you are back to baseline. Please return to the ER with any increased symptoms, chest pain, dizziness, shortness of breath or for any other symptoms concerning for you. Supervising Physician Co-Signing Physician Notes Attending Attestation & Discharge Note: Chart reviewed, discharge care plan d/w MOLLY Gregory. I agree w/ the sanchez components of her discharge documentation. Of note - I did not perform a bedside visit or physical exam on day of discharge. 63yo male with h/o left blancas radiata stroke in July 2024, PAF, HTN, hyperlipidemia, GERD, pre-DM. Presented with dizziness, low BP, and acute kidney injury with peak Cr of 2.5. Had evidence of volume contraction upon admission and received IV hydration with improvement in dizziness as well as improvement in his creatinine to 1.4 (baseline ~1.2). His BPs normalized with IV fluids. HCTZ was stopped entirely. Losartan was held while here, but he will resume such the day after hospital discharge. He was advised NOT TO RESUME HCTZ upon d/c home. Kevin Phelps MD Total Time Total Time Spent Total Time Spent (In Minutes): 45 Coding Level of Care Code 52952 INP/OBS DISCH >30 MIN Diagnoses Dizziness R42 UYEN (acute kidney injury) N17.9 Atrial fibrillation with rapid ventricular response I48.91 History of stroke Z86.73"
[2024-10-15 11:34] VITALS: BP 144/80; PULSE 72; TEMP 98.2
== END 2024-10-15 12:04 | disposition home or self-care (01) | DRG 640 ==
LOC: ED 09:26 → SUATTDRO 12:45 → INTOOBSV 12:45 → 2N 12:45
DX: I48.91 Unspecified atrial fibrillation; Z86.718 Personal history of other venous thrombosis and embolism; R42 Dizziness and giddiness; I10 Essential (primary) hypertension; Z79.82 Long term (current) use of aspirin; N17.0 Acute kidney failure with tubular necrosis; Z79.01 Long term (current) use of anticoagulants; Z79.899 Other long term (current) drug therapy; Z86.73 Personal history of transient ischemic attack (TIA), and cerebral infarction without residual deficits; R55 Syncope and collapse